=== PATIENT | female | born 1945 | race Caucasian/White ===

== ENCOUNTER → 2018-03-29 | Outpatient (CLI) | payer MEDICARE, OTHER ==
[~2018-03-29] MED LIST: ACCUNEB0.63 MG/3; DOXEPIN HCL25 MG PO; GLYBURIDE5 MG PO; LOSARTAN-HCTZ1 EAC1 PO; LUMIGAN2.5 M1 OU; METFORMIN HCL1000 MG PO; SERTRALINE HCL50 MG PO
--- NOTE | 2018-03-29 13:13 | Diagnostic Imaging Report ---
PROCEDURE: Frontal and lateral views of the chest. COMPARISON: 10/15/12 INDICATIONS: PRE OPERATIVE CHEST X-RAY FOR CARPAL TUNNEL FINDINGS: Limited by body habitus. Lines/tubes: None. Lungs: The lungs are well inflated and clear. There is no evidence of pneumonia or pulmonary edema. Pleura: There is no pleural effusion or pneumothorax. Heart and mediastinum: The heart and the mediastinum are normal. Bones: No acute bony abnormality. Degenerative changes of the visualized thoracolumbar spine. IMPRESSION: 1. No acute cardiopulmonary disease. Dictated by: Sid Horvath M.D. on 03/29/2018 at 13:19 Electronically approved by: Sid Horvath M.D. on 03/29/2018 at 13:19
== END ==
LOC: RAD 12:46
PROVIDERS: ATTEND Internal Medicine
DX: Z01.818 Encounter for other preprocedural examination (principal)
CPT/HCPCS: 71046

== ENCOUNTER → 2018-06-24 | Outpatient (CLI) | payer MEDICARE, OTHER ==
--- NOTE | 2018-06-24 11:42 | Diagnostic Imaging Report ---
EXAMINATION: CT scan of the chest without contrast. TECHNIQUE: Spiral CT images of the chest were performed from the lung apices to the level of the adrenal glands. No intravenous contrast was administered per referring physician request. Coronal and sagittal reformatted images were obtained. COMPARISON: None. CLINICAL HISTORY:Lung cancer screening, cough, smoker, COPD DISCUSSION: ABSENCE OF INTRAVENOUS CONTRAST DECREASES SENSITIVITY FOR DETECTION OF FOCAL LESIONS AND VASCULAR PATHOLOGY. LINES/TUBES: None. LUNGS AND AIRWAYS: 3 mm nodule lateral segment right middle lobe seen on series 3 image 35. Biapical parenchymal scar right greater than left.. Calcified granuloma superior segment left lower lobe seen on series 3 image 34. Juxtapleural reticular and groundglass opacities likely reflective of fibrotic changes. Trachea, mainstem bronchi, and central lobar and segmental bronchi are patent. PLEURA: No pneumothorax or pleural effusions. HEART AND MEDIASTINUM: Visualized portions of the thyroid gland appear normal. Atherosclerotic calcification of the aortic arch, great vessel origins, and coronary arteries. No ectasia or aneurysmal dilatation of the thoracic aorta. No pericardial effusion. LYMPH NODES: No axillary, hilar, or mediastinal lymphadenopathy. Right lower paratracheal lymph node is at the upper limits of normal in size, measuring 1 cm short axis, but with normal morphology. ABDOMEN: Visualized portions of the liver, spleen, pancreatic tail, and adrenal glands are notable for a 1.8 cm nodule in the right adrenal gland, average internal attenuation -10 Hounsfield units compatible with a lipid rich adenoma. BONES AND SOFT TISSUES: No osseous destructive lesions. Incompletely healed fracture deformities of the lateral aspects of the right fifth, sixth, and seventh ribs with adjacent pleural thickening. Healed fracture deformity of the left eighth rib. No focal soft tissue abnormalities. IMPRESSION: 3 mm noncalcified nodule in the lateral segment of the right middle lobe. In this high risk patient, a follow-up CT scan of the chest without contrast in 12 months may be considered to assess for stability per Fleischner Society 2017 guidelines. Scattered biapical and juxtapleural fibrotic changes. Atherosclerotic vascular disease. Benign left adrenal lipid rich adenoma. Incompletely healed fracture deformities of the right fifth through seventh ribs. Signed by: Dr. Silvano Padilla M.D. on 06/24/2018 11:38 AM
== END ==
LOC: CT 10:30
PROVIDERS: ATTEND Internal Medicine Critical Care Medicine
DX: Z12.2 Encounter for screening for malignant neoplasm of respiratory organs (principal)
CPT/HCPCS: 71250

== ENCOUNTER → 2018-08-17 | Outpatient (CLI) | payer MEDICARE, OTHER ==
--- NOTE | 2018-08-19 09:10 | Diagnostic Imaging Report ---
#[id number] - MGSCRBIL #BILATERAL DIGITAL SCREENING MAMMOGRAM WITH CAD: 08/17/2018 CLINICAL: Routine screening. No prior exams were available for comparison. Current study contains 4 films. There are scattered fibroglandular elements in both breasts. Current study was also evaluated with a Computer Aided Detection (CAD) system. There are benign calcifications in the right breast. No significant masses, calcifications, or other findings are seen in either breast. IMPRESSION: BENIGN There is no mammographic evidence of malignancy. A 1 year screening mammogram is recommended. The patient will be notified by letter of the results. Thierno wilks/gato:08/18/2018 13:57:28 Sugar Sampler: Gianna TABOR)(Gordon), [facility] letter sent: Normal Exam Mammogram BI-RADS: 2 Benign
== END ==
LOC: MAMMO 11:30
PROVIDERS: ATTEND Family Medicine
DX: Z12.31 Encounter for screening mammogram for malignant neoplasm of breast (principal)
CPT/HCPCS: 77067

== ENCOUNTER 2019-09-09 10:37 | Emergency (ER) | payer MEDICARE, OTHER ==
[~2019-09-09] VITALS: Ht 175.3 cm; Wt 108.9 kg
--- OUTSIDE RECORDS SUMMARY | 2019-09-09 10:39 | XMS REPORT ---
Author Author [facility] Address Unknown Phone Unavailable Care Team Providers Care Business Performance Manager Name Role Phone Victorino HOWELL Unavailable Unavailable STONE DOWLING Unavailable Unavailable ERI SANTANA Unavailable Unavailable Problems This patient has no known problems. Allergies, Adverse Reactions, Alerts This patient has no known allergies or adverse reactions. Medications This patient has no known medications. Results Test Description Test Time Test Comments Text Results Atomic Results Result Comments MAMMOGRAPHY DIGITAL SCR BILAT 2018-08-17 12:45:00 [place] [address] Patient Name: JOSHUA SHARIF MR #: [id number] : 1945 Age/Sex: 73/F Req #: [id number] Adm Physician: Ordered by: KIMMY HOWELL M.D. Report #: [id number] Location: MAMMO Room/Bed: Procedure: [id number] MG/MAMMOGRAPHY DIGITAL SCR BILAT Exam Date: 08/17/18 Exam Time: 1200 REPORT STATUS: Signed #[id number] - MGSCRBIL #BILATERAL DIGITAL SCREENING MAMMOGRAM WITH CAD: 08/17/2018 CLINICAL: Routine screening. No prior exams were available for comparison. Current study contains 4 films. There are scattered fibroglandular elements in both breasts. Current study was also evaluated with a Computer Aided Detection (CAD) system. There are benign calcifications in the right breast. No significant masses, calci fications, or other findings are seen in either breast. IMPRESSION: BENIGN There is no mammographic evidence of malignancy. A 1 year screening mammogram is recommended. The patient will be notified by letter of the results. Malini wilks/edward:08/18/2018 13:57:28 Slackline Operator: Gianna TABOR)(Gordon), [facility] letter sent: Normal Exam Mammogram BI-RADS: 2 Benign Dictated By: MALINI MEDINA DO 1357 Transcribed By: EDWARD on 08/18/18 1357 COPY TO: KIMMY HOWELL M.D. CT CHEST WO 2018-06-24 11:25:00 [place] [address] Patient Name: JOSHUA SHARIF MR #: [id number] : 1945 Age/Sex: 72/F Req #: [id number] Adm Physician: Ordered by: STONE DOWLING MD Report #: [id number] Location: CT Room/Bed: Procedure: [id number] CT/CT CHEST WO Exam Date: 06/24/18 Exam Time: 1100 REPORT STATUS: Signed EXAMINATION: CT scan of the chest without contrast. TECHNIQUE: Spiral CT images of the chest were performed from the lung apices to the level of the adrenal glands. No intravenous contrast was administered per referring physician request. Coronal and sagittal reformatted images were obtained. COMPARISON: None. CLINICAL HISTORY:Lung cancer screening, cough, smoker, COPD DISCUSSION: ABSENCE OF INTRAVENOUS CONTRAST DECREASES SENSITIVITY FOR DETECTION OF FOCAL LESIONS AND VASCULAR PATHOLOGY. LINES/TUBES: None. LUNGS AND AIRWAYS: 3 mm nodule lateral segment right middle lobe seen on series 3 image 35. Biapical parenchymal scar right greater than left.. Calcified granuloma superior segment left lower lobe seen on series 3 image 34. Juxtapleural reticular and groundglass opacities likely reflective of fibrotic changes. Trachea, mainstem bronchi, and central lobar and segmental bronchi are patent. PLEURA: No pneumothorax or pleural effusions. HEART AND MEDIASTINUM: Visualized portions of the thyroid g land appear normal. Atherosclerotic calcification of the aortic arch, great vessel origins, and coronary arteries. No ectasia or aneurysmal dilatation of the thoracic aorta. No pericardial effusion. LYMPH NODES: No axillary, hilar, or mediastinal lymphadenopathy. Right lower paratracheal lymph node is at the upper limits of normal in size, measuring 1 cm short axis, but with normal morphology. ABDOMEN: Visualized portions of the liver, spleen, pancreatic tail, and adrenal glands are notable for a 1.8 cm nodule in the right adrenal gland, average internal attenuation -10 Hounsfield units compatible with a lipid rich adenoma. BONES AND SOFT TISSUES: No osseous destructive lesions. Incompletely healed fracture deformities of the lateral aspects of the right fifth, sixth, and seventh ribs with adjacent pleural thickening. Healed fracture deformity of the left eighth rib. No focal soft tissue abnormalities. IMPRESSION: 3 mm noncalcified nodule in the la teral segment of the right middle lobe. In this high risk patient, a follow-up CT scan of the chest without contrast in 12 months may be considered to assess for stability per Fleischner Society 2017 guidelines. Scattered biapical and juxtapleural fibrotic changes. Atherosclerotic vascular disease. Benign left adrenal lipid rich adenoma. Incompletely healed fracture deformities of the right fifth through seventh ribs. Signed by: Dr. Chetan Hart M.D. on 06/24/2018 11:38 AM Dictated By: CHETAN HART MD 1138 Transcribed By: FABIÁN on 06/24/18 1138 COPY TO: STONE DOWLING MD CHEST 2 VIEWS 2018-03-29 13:19:00 [place] [address] Patient Name: JOSHUA SHARIF MR #: [id number] : 1945 Age/Sex: 72/F Req #: [id number] Adm Physician: Ordered by: ERI SANTANA MD Report #: [id number] Location: [facility] Room/Bed: Procedure: [id number] DX/CHEST 2 VIEWS Exam Date: 03/29/18 Exam Time: 1250 REPORT STATUS: Signed PROCEDURE: Frontal and lateral views of the chest. COMPARISON: 10/15/12 INDICATIONS: PRE OPERATIVE CHEST X-RAY FOR CARPAL TUNNEL FINDINGS: Limited by body habitus. Lines/tubes: None. Lungs: The lungs are well inflated and clear. There is no evidence of pneumonia or pulmonary edema. Pleura: There is no pleural effusion or pneumothorax. Heart and mediastinum: The heart and the mediastinum are normal. Bones: No acute bony abnormality. Degenerative changes of the visualized thoracolumbar spine. IMPRESSION: 1. No acute cardiopulmonary disease. Dictated by: Sid Juarez M.D. on 03/29/2018 at 13:19 Electronically approved by: Sid Juarez M.D. on 03/29/2018 at 13:19 Dictated By: SID JUAREZ MD Transcribed By: JENNIFER on 03/29/181318 COPY TO: ERI SANTANA MD
[2019-09-09] MEDS ORDERED: SODIUM CHLORIDE 0.9% 1000ML 1,000 ML IV SCH (11:45)
[2019-09-09 12:27] LABS: CLARITY,URINE SL CLOUDY (CLEAR); COLOR,URINE YELLOW (YELLOW)
[2019-09-09 12:28] LABS: BILIRUBIN,URINE NEGATIVE (NEGATIVE); KETONES,URINE NEGATIVE (NEGATIVE); LEUKOCYTE ESTERASE ,URINE NEGATIVE (NEGATIVE); NITRITE,URINE NEGATIVE (NEGATIVE); PROTEIN,URINE DIPSTICK NEGATIVE (NEGATIVE); URINE UROBILINOGEN 0.2 mg/dL (0.2 - 1)
[2019-09-09 12:33] LABS: BACTERIA,URINE MANY /HPF; EPITHELIAL CELLS,URINE MODERATE /LPF
[2019-09-09] MEDS ORDERED: CEFDINIR300 MG PO (12:42)
[2019-09-09] MEDS ORDERED: DIFLUCAN150 MG PO (12:44)
== END 2019-09-09 14:31 | disposition home or self-care (01) ==
LOC: ER 10:37
DX: E11.65 Type 2 diabetes mellitus with hyperglycemia (principal); N39.0 Urinary tract infection, site not specified; I10 Essential (primary) hypertension; J44.9 Chronic obstructive pulmonary disease, unspecified; E78.5 Hyperlipidemia, unspecified; F41.9 Anxiety disorder, unspecified; F17.210 Nicotine dependence, cigarettes, uncomplicated
CPT/HCPCS: 36415; 81001; 82948; 87086; 99283; J7030

== ENCOUNTER → 2020-12-13 | Outpatient (CLI) | payer MEDICARE, OTHER ==
[~2020-12-13] MED LIST changes: +CEFDINIR300 MG PO; +DIFLUCAN150 MG PO
== END ==
LOC: RAD 12:12
PROVIDERS: ATTEND Internal Medicine Critical Care Medicine
DX: J44.9 Chronic obstructive pulmonary disease, unspecified (principal)
CPT/HCPCS: 71046

== ENCOUNTER 2021-02-11 12:40 | Emergency (ER) | payer MEDICARE, OTHER ==
[~2021-02-11] VITALS: Ht 175.3 cm; Wt 108.9 kg
[2021-02-11] MEDS ORDERED: SODIUM CHLORIDE 0.9% 1000ML 1,000 ML IV SCH (13:15)
[2021-02-11 13:38] LABS: BASOPHILS # (AUTO) 0.1 (0.0-0.1); EOSINOPHILS # (AUTO) 0.1 (0.0-0.4); HEMATOCRIT 45.7 % (34.2-44.1); HEMOGLOBIN 15.4 g/dL (12.0-16.0); LYMPHOCYTES # (AUTO) 1.8 (1.0-3.2); LYMPHOCYTES % 16.8 % (18.0-39.1); MEAN CORPUSCULAR HEMOGLOBIN 30.7 pg (28-32); MEAN CORPUSCULAR HGB CONC 33.7 g/dL (31-35); MONOCYTES # (AUTO) 0.5 (0.2-0.8); MONOCYTES % 4.9 % (4.4-11.3); NEUTROPHILS # (AUTO) 8.1 (2.1-6.9); NEUTROPHILS % 75.7 % (38.7-80.0); PLATELET COUNT 298 x10e3/uL (140-360); RED BLOOD COUNT 5.02 x10e6/uL (3.6-5.1); RED CELL DISTRIBUTION WIDTH 12.8 % (11.7-14.4)
[2021-02-11 14:02] LABS: ALBUMIN/GLOBULIN RATIO 0.8 (0.8-2.0); ANION GAP 17.1 mmol/L (8-16); CALCIUM 9.2 mg/dL (8.4-10.2); CREATININE, SERUM 1.19 mg/dL (0.57-1.11); POTASSIUM 4.1 mmol/L (3.5-5.1)
[2021-02-11] MEDS ORDERED: INSULIN REGULAR, HUMAN 100 UNIT/1 ML IV ONE (14:30)
[2021-02-11 14:31] LABS: CLARITY,URINE SL CLOUDY (CLEAR); COLOR,URINE YELLOW (YELLOW); KETONES,URINE NEGATIVE (NEGATIVE); LEUKOCYTE ESTERASE ,URINE NEGATIVE (NEGATIVE); NITRITE,URINE NEGATIVE (NEGATIVE); PROTEIN,URINE DIPSTICK 1+ (NEGATIVE); URINE UROBILINOGEN 0.2 mg/dL (0.2 - 1)
[2021-02-11 14:44] LABS: BACTERIA,URINE FEW /HPF; EPITHELIAL CELLS,URINE MODERATE /LPF; RBC,URINE 0-5 /HPF (0-5)
== END 2021-02-11 17:47 | disposition home or self-care (01) ==
LOC: ER 13:01
DX: E11.65 Type 2 diabetes mellitus with hyperglycemia (principal); Z79.84 Long term (current) use of oral hypoglycemic drugs; I10 Essential (primary) hypertension; J44.9 Chronic obstructive pulmonary disease, unspecified; E78.5 Hyperlipidemia, unspecified; F41.8 Other specified anxiety disorders
CPT/HCPCS: 36415; 80053; 81001; 82948; 85025; 99283; J1817

== ENCOUNTER 2021-04-18 15:00 | Inpatient (IN) | payer MEDICARE, OTHER ==
[~2021-04-18] VITALS: Ht 175.3 cm; Wt 108.9 kg
[2021-04-18] MEDS ORDERED: IPRATROPIUM BROMIDE 0.02% 2.5 ML NEB NEB STA (15:12)
[2021-04-18] MEDS ORDERED: ALBUTEROL SULF 0.083% NEB SOLN 3 ML NEB NEB STA (15:12)
[2021-04-18 15:51] LABS: BASOPHILS # (AUTO) 0.1 (0.0-0.1); BASOPHILS % 0.7 % (0.0-1.0); EOSINOPHILS # (AUTO) 0.4 (0.0-0.4); EOSINOPHILS % 4.1 % (0.0-6.0); HEMATOCRIT 42.3 % (34.2-44.1); LYMPHOCYTES # (AUTO) 1.4 (1.0-3.2); LYMPHOCYTES % 13.2 % (18.0-39.1); MEAN CORPUSCULAR HGB CONC 33.1 g/dL (31-35); MEAN CORPUSCULAR VOLUME 90.6 fL (81-99); MONOCYTES # (AUTO) 0.8 (0.2-0.8); MONOCYTES % 7.3 % (4.4-11.3); NEUTROPHILS # (AUTO) 7.8 (2.1-6.9); NEUTROPHILS % 71.8 % (38.7-80.0); PLATELET COUNT 348 x10e3/uL (140-360); RED BLOOD COUNT 4.67 x10e6/uL (3.6-5.1); RED CELL DISTRIBUTION WIDTH 12.9 % (11.7-14.4)
[2021-04-18 16:00] LABS: INR 0.98; PROTHROMBIN TIME 13.2 seconds (11.9-14.5)
[2021-04-18 16:07] LABS: ALBUMIN/GLOBULIN RATIO 0.4 (0.8-2.0); ANION GAP 18.9 mmol/L (8-16); CALCIUM 9.1 mg/dL (8.4-10.2); CREATININE, SERUM 0.94 mg/dL (0.57-1.11); POTASSIUM 4.9 mmol/L (3.5-5.1)
[2021-04-18 16:18] LABS: CLARITY,URINE HAZY (CLEAR); COLOR,URINE AMBER (YELLOW); KETONES,URINE TRACE (NEGATIVE); LEUKOCYTE ESTERASE ,URINE SMALL (NEGATIVE); NITRITE,URINE POSITIVE (NEGATIVE); PROTEIN,URINE DIPSTICK 2+ (NEGATIVE); URINE UROBILINOGEN 0.2 mg/dL (0.2 - 1)
[2021-04-18 16:32] LABS: BACTERIA,URINE MANY /HPF; EPITHELIAL CELLS,URINE FEW /LPF; RBC,URINE 0-5 /HPF (0-5)
[2021-04-18] MEDS ORDERED: ALBUTEROL SULFATE HFA 8GM INHALATION AEROSOL INH ONE (19:00)
[2021-04-18 19:08] LABS: CREATINE KINASE MB 0.7 ng/mL (0-5.0)
[2021-04-18] MEDS ORDERED: REMDESIVIR 200MG 200 MG in SODIUM CHLORIDE 0.9% 100 ML 100 ML IV ONE (20:30)
[2021-04-18] MEDS: ENOXAPARIN 30 MG/0.3 ML SYR SC SCH (21:00)
[2021-04-18] MEDS: CEFTRIAXONE 2 GM in SODIUM CHLORIDE 0.9% 100 ML IV SCH (21:00)
[2021-04-18 22:10] VITALS: BP 174/90
[2021-04-19] VITALS (8 sets, daily range): BP systolic 119–177; BP diastolic 77–93
[2021-04-19 00:01] LABS: CREATINE KINASE MB 0.9 ng/mL (0-5.0)
[2021-04-19 05:28] LABS: BASOPHILS % 0.3 % (0.0-1.0); EOSINOPHILS % 0.1 % (0.0-6.0); HEMATOCRIT 39.3 % (34.2-44.1); HEMOGLOBIN 13.5 g/dL (12.0-16.0); LYMPHOCYTES # (AUTO) 1.1 (1.0-3.2); LYMPHOCYTES % 8.8 % (18.0-39.1); MEAN CORPUSCULAR HEMOGLOBIN 30.6 pg (28-32); MEAN CORPUSCULAR HGB CONC 34.4 g/dL (31-35); MEAN CORPUSCULAR VOLUME 89.1 fL (81-99); MONOCYTES # (AUTO) 0.6 (0.2-0.8); MONOCYTES % 4.8 % (4.4-11.3); NEUTROPHILS # (AUTO) 10.1 (2.1-6.9); NEUTROPHILS % 81.4 % (38.7-80.0); PLATELET COUNT 335 x10e3/uL (140-360); RED BLOOD COUNT 4.41 x10e6/uL (3.6-5.1); RED CELL DISTRIBUTION WIDTH 12.9 % (11.7-14.4)
[2021-04-19 05:58] LABS: ALBUMIN/GLOBULIN RATIO 0.4 (0.8-2.0); ANION GAP 21.4 mmol/L (8-16); CALCIUM 8.7 mg/dL (8.4-10.2); CREATININE, SERUM 0.98 mg/dL (0.57-1.11); POTASSIUM 4.4 mmol/L (3.5-5.1)
[2021-04-19] MEDS ORDERED: REMDESIVIR 200MG 200 MG in SODIUM CHLORIDE 0.9% 100 ML IV ONE (09:00)
[2021-04-19] MEDS ORDERED: DEXTROSE 50% SYRINGE 50 ML IV PRN (09:15)
[2021-04-19] MEDS ORDERED: SODIUM CHLORIDE 0.9% 250ML 250 ML ONE (09:44)
[2021-04-19] MEDS: ZINC SULFATE 50 MG CAP PO SCH (09:45)
[2021-04-19] MEDS: ASPIRIN 325 MG TAB PO SCH (09:45)
[2021-04-19] MEDS: LOSARTAN POTASSIUM 100 MG TAB PO SCH (09:45)
[2021-04-19] MEDS: ENOXAPARIN 30 MG/0.3 ML SYR SC SCH ×2 (09:45→20:32)
[2021-04-19] MEDS: HYDROCHLOROTHIAZIDE 25 MG TAB PO SCH (09:45)
[2021-04-19] MEDS: SERTRALINE HCL 50 MG TAB PO SCH (09:45)
[2021-04-19] MEDS: ASCORBIC ACID 500 MG TAB PO SCH ×2 (09:45→16:21)
[2021-04-19] MEDS ORDERED: INSULIN LISPRO 100 UNIT/1 ML 3ML VIAL SQ SCH (11:30)
[2021-04-19] MEDS: INSULIN LISPRO 100 UNIT/1 ML 3ML VIAL SQ SCH ×3 (13:26→20:32)
[2021-04-19] MEDS ORDERED: REMDESIVIR 100MG 100 MG in SODIUM CHLORIDE 0.9% 100 ML IV SCH (14:00)
[2021-04-19] MEDS: LORAZEPAM 1 MG TAB PO PRN (16:21)
[2021-04-19] MEDS: ALBUTEROL SULF 0.083% NEB SOLN 3 ML NEB NEB SCH ×2 (18:37→23:00)
[2021-04-19] MEDS: CEFTRIAXONE 2 GM in SODIUM CHLORIDE 0.9% 100 ML IV SCH (20:31)
[2021-04-19] MEDS: BIMATOPROST(OPTH) 2.5 ML BOTTLE OP SCH (20:31)
[2021-04-19] MEDS: DOXEPIN HCL 10 MG CAP PO SCH (20:32)
[2021-04-19] MEDS ORDERED: DOXEPIN HCL 25 MG CAP PO SCH (21:00)
[2021-04-20] VITALS (8 sets, daily range): BP systolic 115–166; BP diastolic 78–98
[2021-04-20 06:22] LABS: BASOPHILS # (AUTO) 0.1 (0.0-0.1); BASOPHILS % 0.8 % (0.0-1.0); EOSINOPHILS # (AUTO) 0.4 (0.0-0.4); EOSINOPHILS % 2.8 % (0.0-6.0); HEMOGLOBIN 13.6 g/dL (12.0-16.0); LYMPHOCYTES # (AUTO) 1.7 (1.0-3.2); LYMPHOCYTES % 11.9 % (18.0-39.1); MEAN CORPUSCULAR HEMOGLOBIN 29.8 pg (28-32); MEAN CORPUSCULAR HGB CONC 32.4 g/dL (31-35); MEAN CORPUSCULAR VOLUME 91.9 fL (81-99); MONOCYTES # (AUTO) 1.1 (0.2-0.8); MONOCYTES % 7.3 % (4.4-11.3); NEUTROPHILS # (AUTO) 10.7 (2.1-6.9); NEUTROPHILS % 73.8 % (38.7-80.0); PLATELET COUNT 407 x10e3/uL (140-360); RED BLOOD COUNT 4.57 x10e6/uL (3.6-5.1); RED CELL DISTRIBUTION WIDTH 13.2 % (11.7-14.4)
[2021-04-20] MEDS: ALBUTEROL SULF 0.083% NEB SOLN 3 ML NEB NEB SCH ×2 (07:00→15:00)
[2021-04-20 07:06] LABS: ALBUMIN/GLOBULIN RATIO 0.4 (0.8-2.0); ANION GAP 18.9 mmol/L (8-16); CALCIUM 9.4 mg/dL (8.4-10.2); CREATININE, SERUM 0.82 mg/dL (0.57-1.11); POTASSIUM 3.9 mmol/L (3.5-5.1)
[2021-04-20 07:37] LABS: CHOL/HDL RATIO 2.7 (3.0-3.6)
[2021-04-20] MEDS: INSULIN LISPRO 100 UNIT/1 ML 3ML VIAL SQ SCH ×4 (09:30→20:41)
[2021-04-20] MEDS: ZINC SULFATE 50 MG CAP PO SCH (09:30)
[2021-04-20] MEDS: LOSARTAN POTASSIUM 100 MG TAB PO SCH (09:30)
[2021-04-20] MEDS: ASPIRIN 325 MG TAB PO SCH (09:30)
[2021-04-20] MEDS: LORAZEPAM 1 MG TAB PO PRN ×2 (09:30→20:40)
[2021-04-20] MEDS: REMDESIVIR 100MG 100 MG in SODIUM CHLORIDE 0.9% 100 ML IV SCH (09:30)
[2021-04-20] MEDS: SERTRALINE HCL 50 MG TAB PO SCH (09:30)
[2021-04-20] MEDS: ASCORBIC ACID 500 MG TAB PO SCH ×2 (09:30→16:30)
[2021-04-20] MEDS: NICOTINE 7 MG PATCH TOP SCH (09:30)
[2021-04-20] MEDS: HYDROCHLOROTHIAZIDE 25 MG TAB PO SCH (09:30)
[2021-04-20] MEDS: ENOXAPARIN 30 MG/0.3 ML SYR SC SCH ×2 (09:30→20:40)
[2021-04-20] MEDS ORDERED: HYDRALAZINE HCL 20 MG/ML VIAL IV PRN (19:30)
[2021-04-20] MEDS: CEFTRIAXONE 2 GM in SODIUM CHLORIDE 0.9% 100 ML IV SCH (20:39)
[2021-04-20] MEDS: DOXEPIN HCL 10 MG CAP PO SCH (20:40)
[2021-04-20] MEDS: BIMATOPROST(OPTH) 2.5 ML BOTTLE OP SCH (20:40)
[2021-04-21] VITALS (8 sets, daily range): BP systolic 112–144; BP diastolic 74–85
[2021-04-21 06:03] LABS: BASOPHILS # (AUTO) 0.1 (0.0-0.1); BASOPHILS % 0.7 % (0.0-1.0); EOSINOPHILS # (AUTO) 0.4 (0.0-0.4); EOSINOPHILS % 2.3 % (0.0-6.0); HEMOGLOBIN 14.5 g/dL (12.0-16.0); LYMPHOCYTES # (AUTO) 1.5 (1.0-3.2); MEAN CORPUSCULAR VOLUME 91.1 fL (81-99); MONOCYTES # (AUTO) 1.2 (0.2-0.8); MONOCYTES % 7.6 % (4.4-11.3); NEUTROPHILS # (AUTO) 11.6 (2.1-6.9); NEUTROPHILS % 76.6 % (38.7-80.0); PLATELET COUNT 437 x10e3/uL (140-360); RED BLOOD COUNT 4.83 x10e6/uL (3.6-5.1); RED CELL DISTRIBUTION WIDTH 13.1 % (11.7-14.4)
[2021-04-21 07:01] LABS: ALBUMIN 2.1 g/dL (3.5-5.0); ALBUMIN/GLOBULIN RATIO 0.5 (0.8-2.0); ANION GAP 18.8 mmol/L (8-16); CALCIUM 9.2 mg/dL (8.4-10.2); CREATININE, SERUM 0.9 mg/dL (0.57-1.11); POTASSIUM 3.8 mmol/L (3.5-5.1)
[2021-04-21] MEDS: NICOTINE 7 MG PATCH TOP SCH (08:18)
[2021-04-21] MEDS: LOSARTAN POTASSIUM 100 MG TAB PO SCH (08:18)
[2021-04-21] MEDS: ASPIRIN 325 MG TAB PO SCH (08:18)
[2021-04-21] MEDS: ASCORBIC ACID 500 MG TAB PO SCH ×2 (08:18→17:59)
[2021-04-21] MEDS: SERTRALINE HCL 50 MG TAB PO SCH (08:18)
[2021-04-21] MEDS: REMDESIVIR 100MG 100 MG in SODIUM CHLORIDE 0.9% 100 ML IV SCH (08:18)
[2021-04-21] MEDS: HYDROCHLOROTHIAZIDE 25 MG TAB PO SCH (08:18)
[2021-04-21] MEDS: ZINC SULFATE 50 MG CAP PO SCH (08:18)
[2021-04-21] MEDS: ENOXAPARIN 30 MG/0.3 ML SYR SC SCH ×2 (08:18→20:52)
[2021-04-21] MEDS: LORAZEPAM 1 MG TAB PO PRN (08:19)
[2021-04-21] MEDS: INSULIN LISPRO 100 UNIT/1 ML 3ML VIAL SQ SCH ×4 (08:20→20:52)
[2021-04-21] MEDS: DOXEPIN HCL 10 MG CAP PO SCH (20:52)
[2021-04-21] MEDS: CEFTRIAXONE 2 GM in SODIUM CHLORIDE 0.9% 100 ML IV SCH (20:52)
[2021-04-21] MEDS: BIMATOPROST(OPTH) 2.5 ML BOTTLE OP SCH (20:52)
[2021-04-22] VITALS (7 sets, daily range): BP systolic 94–123; BP diastolic 56–80
[2021-04-22] MEDS: LORAZEPAM 1 MG TAB PO PRN (02:43)
[2021-04-22 07:07] LABS: MAGNESIUM 1.5 MG/DL (1.3-2.1); PHOSPHORUS 4.4 MG/DL (2.3-4.7)
[2021-04-22] MEDS: ZINC SULFATE 50 MG CAP PO SCH (08:21)
[2021-04-22] MEDS: ASCORBIC ACID 500 MG TAB PO SCH ×2 (08:21→17:00)
[2021-04-22] MEDS: HYDROCHLOROTHIAZIDE 25 MG TAB PO SCH (08:21)
[2021-04-22] MEDS: ASPIRIN 325 MG TAB PO SCH (08:21)
[2021-04-22] MEDS: SERTRALINE HCL 50 MG TAB PO SCH (08:22)
[2021-04-22] MEDS: NICOTINE 7 MG PATCH TOP SCH (08:22)
[2021-04-22] MEDS: ENOXAPARIN 30 MG/0.3 ML SYR SC SCH ×2 (08:22→23:04)
[2021-04-22] MEDS ORDERED: SODIUM CHLORIDE 0.9% 100 ML ONE (08:37)
[2021-04-22] MEDS: REMDESIVIR 100MG 100 MG in SODIUM CHLORIDE 0.9% 100 ML IV SCH (09:28)
[2021-04-22 10:08] LABS: BASOPHILS # (AUTO) 0.1 (0.0-0.1); BASOPHILS % 0.7 % (0.0-1.0); EOSINOPHILS # (AUTO) 0.2 (0.0-0.4); EOSINOPHILS % 1.1 % (0.0-6.0); HEMATOCRIT 44.5 % (34.2-44.1); HEMOGLOBIN 14.3 g/dL (12.0-16.0); LYMPHOCYTES # (AUTO) 1.4 (1.0-3.2); LYMPHOCYTES % 8.9 % (18.0-39.1); MEAN CORPUSCULAR HEMOGLOBIN 29.9 pg (28-32); MEAN CORPUSCULAR HGB CONC 32.1 g/dL (31-35); MEAN CORPUSCULAR VOLUME 93.1 fL (81-99); MONOCYTES # (AUTO) 1.1 (0.2-0.8); MONOCYTES % 7.1 % (4.4-11.3); NEUTROPHILS # (AUTO) 12.4 (2.1-6.9); NEUTROPHILS % 80.3 % (38.7-80.0); PLATELET COUNT 446 x10e3/uL (140-360); RED BLOOD COUNT 4.78 x10e6/uL (3.6-5.1); RED CELL DISTRIBUTION WIDTH 13.2 % (11.7-14.4)
[2021-04-22 10:25] LABS: ALBUMIN 2.1 g/dL (3.5-5.0); ALBUMIN/GLOBULIN RATIO 0.5 (0.8-2.0); ANION GAP 19.7 mmol/L (8-16); CALCIUM 9.1 mg/dL (8.4-10.2); CREATININE, SERUM 0.87 mg/dL (0.57-1.11); POTASSIUM 3.7 mmol/L (3.5-5.1)
[2021-04-22] MEDS: INSULIN LISPRO 100 UNIT/1 ML 3ML VIAL SQ SCH ×4 (10:34→21:00)
[2021-04-22] MEDS: BIMATOPROST(OPTH) 2.5 ML BOTTLE OP SCH (23:04)
[2021-04-22] MEDS: CEFTRIAXONE 2 GM in SODIUM CHLORIDE 0.9% 100 ML IV SCH (23:04)
[2021-04-22] MEDS: DOXEPIN HCL 10 MG CAP PO SCH (23:04)
[2021-04-23 00:59] VITALS: BP 100/73
[2021-04-23 04:00] VITALS: BP 119/62
[2021-04-23] MEDS: INSULIN LISPRO 100 UNIT/1 ML 3ML VIAL SQ SCH ×4 (07:30→20:53)
[2021-04-23] MEDS: NICOTINE 7 MG PATCH TOP SCH (08:50)
[2021-04-23] MEDS: LOSARTAN POTASSIUM 25 MG TAB PO SCH (08:50)
[2021-04-23] MEDS: SERTRALINE HCL 50 MG TAB PO SCH (08:50)
[2021-04-23] MEDS: HYDROCHLOROTHIAZIDE 25 MG TAB PO SCH (08:50)
[2021-04-23] MEDS: REMDESIVIR 100MG 100 MG in SODIUM CHLORIDE 0.9% 100 ML IV SCH (08:50)
[2021-04-23] MEDS: ASCORBIC ACID 500 MG TAB PO SCH ×2 (08:50→16:20)
[2021-04-23] MEDS: ASPIRIN 325 MG TAB PO SCH (08:50)
[2021-04-23] MEDS: ZINC SULFATE 50 MG CAP PO SCH (08:50)
[2021-04-23] MEDS: ENOXAPARIN 30 MG/0.3 ML SYR SC SCH ×2 (08:50→20:52)
[2021-04-23 09:09] VITALS: BP 107/67
[2021-04-23 10:21] LABS: BASOPHILS # (AUTO) 0.1 (0.0-0.1); BASOPHILS % 0.9 % (0.0-1.0); EOSINOPHILS # (AUTO) 0.2 (0.0-0.4); EOSINOPHILS % 1.5 % (0.0-6.0); HEMOGLOBIN 13.4 g/dL (12.0-16.0); LYMPHOCYTES # (AUTO) 1.4 (1.0-3.2); LYMPHOCYTES % 11.1 % (18.0-39.1); MEAN CORPUSCULAR HEMOGLOBIN 29.6 pg (28-32); MEAN CORPUSCULAR HGB CONC 31.9 g/dL (31-35); MEAN CORPUSCULAR VOLUME 92.9 fL (81-99); MONOCYTES # (AUTO) 0.8 (0.2-0.8); MONOCYTES % 6.5 % (4.4-11.3); NEUTROPHILS # (AUTO) 9.7 (2.1-6.9); PLATELET COUNT 375 x10e3/uL (140-360); RED BLOOD COUNT 4.52 x10e6/uL (3.6-5.1); RED CELL DISTRIBUTION WIDTH 13.2 % (11.7-14.4)
[2021-04-23 11:14] LABS: ALBUMIN 2.1 g/dL (3.5-5.0); ALBUMIN/GLOBULIN RATIO 0.5 (0.8-2.0); ANION GAP 16.6 mmol/L (8-16); CALCIUM 8.8 mg/dL (8.4-10.2); CREATININE, SERUM 0.96 mg/dL (0.57-1.11); POTASSIUM 3.6 mmol/L (3.5-5.1)
[2021-04-23] MEDS: LORAZEPAM 1 MG TAB PO PRN (16:55)
[2021-04-23] MEDS: DOXEPIN HCL 10 MG CAP PO SCH (20:52)
[2021-04-23] MEDS: BIMATOPROST(OPTH) 2.5 ML BOTTLE OP SCH (20:52)
[2021-04-23] MEDS: CEFTRIAXONE 2 GM in SODIUM CHLORIDE 0.9% 100 ML IV SCH (20:52)
[2021-04-23 20:55] VITALS: BP 97/61
[2021-04-24] VITALS (7 sets, daily range): BP systolic 98–123; BP diastolic 64–85
[2021-04-24] MEDS: HYDROCODONE/APAP 10MG-325MG TAB PO PRN ×2 (02:34→08:34)
[2021-04-24 06:23] LABS: BASOPHILS # (AUTO) 0.2 (0.0-0.1); BASOPHILS % 1.1 % (0.0-1.0); EOSINOPHILS # (AUTO) 0.2 (0.0-0.4); EOSINOPHILS % 1.8 % (0.0-6.0); HEMATOCRIT 36.9 % (34.2-44.1); HEMOGLOBIN 13.2 g/dL (12.0-16.0); LYMPHOCYTES # (AUTO) 1.6 (1.0-3.2); LYMPHOCYTES % 12.1 % (18.0-39.1); MEAN CORPUSCULAR HEMOGLOBIN 33.5 pg (28-32); MEAN CORPUSCULAR HGB CONC 35.8 g/dL (31-35); MEAN CORPUSCULAR VOLUME 93.7 fL (81-99); MONOCYTES % 7.5 % (4.4-11.3); NEUTROPHILS # (AUTO) 10.1 (2.1-6.9); NEUTROPHILS % 76.4 % (38.7-80.0); PLATELET COUNT 299 x10e3/uL (140-360); RED BLOOD COUNT 3.94 x10e6/uL (3.6-5.1); RED CELL DISTRIBUTION WIDTH 14.6 % (11.7-14.4)
[2021-04-24 06:42] LABS: ANION GAP 15.6 mmol/L (8-16); CREATININE, SERUM 1.01 mg/dL (0.57-1.11); POTASSIUM 3.6 mmol/L (3.5-5.1)
[2021-04-24 07:21] LABS: ALBUMIN 2.1 g/dL (3.5-5.0); ALBUMIN/GLOBULIN RATIO 0.5 (0.8-2.0); ANION GAP 17.6 mmol/L (8-16); CREATININE, SERUM 1.04 mg/dL (0.57-1.11); POTASSIUM 3.6 mmol/L (3.5-5.1)
[2021-04-24] MEDS ORDERED: DEXAMETHASONE SOD PHOS 10 MG/1 ML VIAL IV SCH (09:00)
[2021-04-24] MEDS: SERTRALINE HCL 50 MG TAB PO SCH (09:10)
[2021-04-24] MEDS: ASCORBIC ACID 500 MG TAB PO SCH ×2 (09:10→16:54)
[2021-04-24] MEDS: ENOXAPARIN 30 MG/0.3 ML SYR SC SCH (09:10)
[2021-04-24] MEDS: ZINC SULFATE 50 MG CAP PO SCH (09:10)
[2021-04-24] MEDS: HYDROCHLOROTHIAZIDE 25 MG TAB PO SCH (09:10)
[2021-04-24] MEDS: ASPIRIN 325 MG TAB PO SCH (09:10)
[2021-04-24] MEDS: NICOTINE 7 MG PATCH TOP SCH (09:10)
[2021-04-24] MEDS: REMDESIVIR 100MG 100 MG in SODIUM CHLORIDE 0.9% 100 ML IV SCH (09:30)
[2021-04-24] MEDS: INSULIN LISPRO 100 UNIT/1 ML 3ML VIAL SQ SCH ×3 (09:51→16:59)
[2021-04-24] MEDS: LOSARTAN POTASSIUM 25 MG TAB PO SCH (12:00)
[2021-04-24] MEDS ORDERED: COZAAR25 MG PO (13:31)
[2021-04-24] MEDS ORDERED: ASCORBIC ACID500 MG PO (13:31)
[2021-04-24] MEDS ORDERED: Zinc Sulfate PO (13:31)
[2021-04-24] MEDS ORDERED: ESIDRIX25 MG PO (13:31)
[2021-04-24] MEDS ORDERED: ASPIRIN325 MG PO (13:31)
[2021-04-24] MEDS ORDERED: DOXEPIN HCL10 MG PO (13:31)
[2021-04-24] MEDS ORDERED: NICODERM CQ1 EACH TOP (13:31)
[2021-04-24] MEDS ORDERED: DECADRON4 M1 PO (13:33)
[2021-04-24] MEDS: LORAZEPAM 1 MG TAB PO PRN (16:50)
== END 2021-04-24 20:51 | DRG 177 ==
LOC: ER 15:10 → ERHOLD 18:51 → IMCU 22:08
PROVIDERS: ADMIT Internal Medicine; ATTEND Internal Medicine
PROC: 3E0333Z Introduction of Anti-inflammatory into Peripheral Vein, Percutaneous Approach (ICD-10-PCS; principal; 2021-04-24)
PROC: XW033E5 Introduction of Remdesivir Anti-infective into Peripheral Vein, Percutaneous Approach, New Technology Group 5 (ICD-10-PCS; 2021-04-24)
DX: U07.1 COVID-19 (principal); J12.82 Pneumonia due to coronavirus disease 2019; J96.01 Acute respiratory failure with hypoxia; N39.0 Urinary tract infection, site not specified; E87.2 Acidosis; Z83.3 Family history of diabetes mellitus; F17.210 Nicotine dependence, cigarettes, uncomplicated; J44.9 Chronic obstructive pulmonary disease, unspecified; I10 Essential (primary) hypertension; F41.1 Generalized anxiety disorder; H40.9 Unspecified glaucoma; E11.9 Type 2 diabetes mellitus without complications; E66.9 Obesity, unspecified; Z68.35 Body mass index [BMI] 35.0-35.9, adult; R53.81 Other malaise; B96.20 Unspecified Escherichia coli [E. coli] as the cause of diseases classified elsewhere; Z79.82 Long term (current) use of aspirin; Z79.84 Long term (current) use of oral hypoglycemic drugs
CPT/HCPCS: 36415; 51700; 71045; 80048; 80053; 80061; 81001; 82550; 82553; 82948; 83036; 83605; 83735; 84100; 84443; 84484; 85025; 85379; 85610; 86140; 87040; 87086; 87186; 93005; 93306; 94664; 97139; 99284; J0456; J0696; J1100; J1650; J7050; U0002

== ENCOUNTER 2021-08-23 14:54 | Inpatient (IN) | payer MEDICARE, OTHER ==
[~2021-08-23] VITALS: Ht 175.3 cm; Wt 147.4 kg
[~2021-08-23 14:54] MED LIST changes: +ASCORBIC ACID500 MG PO; +ASPIRIN325 MG PO; +COZAAR25 MG PO; +DECADRON4 M1 PO; +DOXEPIN HCL10 MG PO; +ESIDRIX25 MG PO; +NICODERM CQ1 EACH TOP; +Zinc Sulfate PO
[2021-08-23 15:36] LABS: BASOPHILS # (AUTO) 0.1 (0.0-0.1); BASOPHILS % 0.5 % (0.0-1.0); EOSINOPHILS % 0.1 % (0.0-6.0); HEMATOCRIT 46.6 % (34.2-44.1); HEMOGLOBIN 15.2 g/dL (12.0-16.0); LYMPHOCYTES # (AUTO) 1.3 (1.0-3.2); LYMPHOCYTES % 7.5 % (18.0-39.1); MEAN CORPUSCULAR HEMOGLOBIN 30.4 pg (28-32); MEAN CORPUSCULAR HGB CONC 32.6 g/dL (31-35); MEAN CORPUSCULAR VOLUME 93.2 fL (81-99); MONOCYTES # (AUTO) 0.9 (0.2-0.8); MONOCYTES % 5.1 % (4.4-11.3); NEUTROPHILS # (AUTO) 14.6 (2.1-6.9); NEUTROPHILS % 86.3 % (38.7-80.0); PLATELET COUNT 328 x10e3/uL (140-360)
[2021-08-23 15:40] LABS: CLARITY,URINE HAZY (CLEAR); COLOR,URINE YELLOW (YELLOW); KETONES,URINE NEGATIVE (NEGATIVE); LEUKOCYTE ESTERASE ,URINE NEGATIVE (NEGATIVE); NITRITE,URINE NEGATIVE (NEGATIVE); PROTEIN,URINE DIPSTICK 2+ (NEGATIVE); URINE UROBILINOGEN 0.2 mg/dL (0.2 - 1)
[2021-08-23 15:41] LABS: AMPHETAMINES SCREEN,URINE NEGATIVE (NEGATIVE); BENZODIAZEPINES SCREEN,URINE NEGATIVE (NEGATIVE); PHENCYCLIDINE SCREEN,URINE NEGATIVE (NEGATIVE)
[2021-08-23 15:53] LABS: ALBUMIN 3.3 g/dL (3.5-5.0); ALBUMIN/GLOBULIN RATIO 0.8 (0.8-2.0); ANION GAP 12.9 mmol/L (8-16); CREATININE, SERUM 1.11 mg/dL (0.57-1.11); POTASSIUM 4.9 mmol/L (3.5-5.1)
[2021-08-23 15:54] LABS: CREATINE KINASE 221 IU/L (29-168)
[2021-08-23] MEDS ORDERED: LORAZEPAM INJ 2 MG/ML VIAL IV ONE (16:00)
[2021-08-23 16:13] LABS: BACTERIA,URINE FEW /HPF; EPITHELIAL CELLS,URINE RARE /LPF; RBC,URINE 0-5 /HPF (0-5)
[2021-08-23] MEDS ORDERED: Vancomycin IV 1 GM in SODIUM CHLORIDE 0.9% 250ML 250 ML IV ONE (16:30)
[2021-08-23] MEDS ORDERED: PIPERACILLIN/TAZOBACTAM 3.375 GM in SODIUM CHLORIDE 0.9% 50ML 50 ML IV ONE (16:30)
[2021-08-23 18:22] VITALS: BP 106/78
[2021-08-23 19:19] VITALS: BP 106/78
[2021-08-23 20:06] VITALS: BP 106/78
[2021-08-23 21:03] VITALS: BP 129/78
[2021-08-23] MEDS: PIPERACILLIN/TAZOBACTAM 3.375 GM in SODIUM CHLORIDE 0.9% 50ML 50 ML IV SCH (22:00)
[2021-08-23] MEDS ORDERED: Vancomycin IV 1 GM in SODIUM CHLORIDE 0.9% 250ML 250 ML IV SCH (22:00)
[2021-08-23] MEDS ORDERED: SODIUM CHLORIDE 0.9% 250ML 250 ML ONE (23:01)
[2021-08-24] VITALS (10 sets, daily range): BP systolic 92–151; BP diastolic 61–103
[2021-08-24] MEDS: LORAZEPAM INJ 2 MG/ML VIAL IV PRN ×4 (02:15→17:45)
[2021-08-24] MEDS: PIPERACILLIN/TAZOBACTAM 3.375 GM in SODIUM CHLORIDE 0.9% 50ML 50 ML IV SCH ×4 (04:00→21:05)
[2021-08-24] MEDS ORDERED: Vancomycin IV 1 GM in SODIUM CHLORIDE 0.9% 250ML 250 ML IV SCH (05:00)
[2021-08-24] MEDS ORDERED: Vancomycin IV 1.75 GM in SODIUM CHLORIDE 0.9% 250ML 250 ML IV SCH (09:00)
[2021-08-24] MEDS ORDERED: DEXTROSE 50% SYRINGE 50 ML IV PRN (09:45)
[2021-08-24] MEDS: ALBUTEROL/IPRATROPIUM 3 ML NEB NEB SCH ×3 (11:20→20:00)
[2021-08-24] MEDS ORDERED: RISPERIDONE 0.5 MG TAB PO SCH (11:30)
[2021-08-24] MEDS ORDERED: SODIUM CHLORIDE 0.9% 1000ML 1,000 ML IV ONE (11:30)
[2021-08-24] MEDS: INSULIN LISPRO 100 UNIT/1 ML 3ML VIAL SQ SCH ×3 (11:30→20:53)
[2021-08-24] MEDS ORDERED: SODIUM CHLORIDE 0.9% 1000ML 1,000 ML ONE (15:03)
[2021-08-24] MEDS: RISPERIDONE 0.5 MG TAB PO SCH ×2 (15:59→20:02)
[2021-08-25] VITALS (7 sets, daily range): BP systolic 101–129; BP diastolic 61–79
[2021-08-25] MEDS: ALBUTEROL/IPRATROPIUM 3 ML NEB NEB SCH ×7 (00:43→18:50)
[2021-08-25] MEDS: LORAZEPAM INJ 2 MG/ML VIAL IV PRN ×3 (02:34→21:04)
[2021-08-25] MEDS: PIPERACILLIN/TAZOBACTAM 3.375 GM in SODIUM CHLORIDE 0.9% 50ML 50 ML IV SCH ×4 (03:02→21:04)
[2021-08-25 08:07] LABS: BASOPHILS # (AUTO) 0.2 (0.0-0.1); BASOPHILS % 1.4 % (0.0-1.0); EOSINOPHILS # (AUTO) 0.3 (0.0-0.4); EOSINOPHILS % 2.9 % (0.0-6.0); HEMATOCRIT 44.2 % (34.2-44.1); HEMOGLOBIN 14.1 g/dL (12.0-16.0); LYMPHOCYTES % 18.2 % (18.0-39.1); MEAN CORPUSCULAR HEMOGLOBIN 30.3 pg (28-32); MEAN CORPUSCULAR HGB CONC 31.9 g/dL (31-35); MEAN CORPUSCULAR VOLUME 94.8 fL (81-99); MONOCYTES # (AUTO) 0.6 (0.2-0.8); MONOCYTES % 5.7 % (4.4-11.3); NEUTROPHILS # (AUTO) 7.9 (2.1-6.9); NEUTROPHILS % 71.4 % (38.7-80.0); PLATELET COUNT 294 x10e3/uL (140-360); RED BLOOD COUNT 4.66 x10e6/uL (3.6-5.1)
[2021-08-25] MEDS: RISPERIDONE 0.5 MG TAB PO SCH ×2 (08:25→20:01)
[2021-08-25] MEDS: ASPIRIN 325 MG TAB PO SCH (08:25)
[2021-08-25] MEDS: INSULIN LISPRO 100 UNIT/1 ML 3ML VIAL SQ SCH ×4 (08:25→20:02)
[2021-08-25] MEDS: LOSARTAN POTASSIUM 25 MG TAB PO SCH (08:25)
[2021-08-25 08:26] LABS: ANION GAP 12.1 mmol/L (8-16); CALCIUM 9.1 mg/dL (8.4-10.2); CREATININE, SERUM 1.17 mg/dL (0.57-1.11); POTASSIUM 4.1 mmol/L (3.5-5.1)
[2021-08-25] MEDS: Vancomycin IV 1.75 GM in SODIUM CHLORIDE 0.9% 500ML 500 ML IV SCH (12:10)
[2021-08-26] VITALS (7 sets, daily range): BP systolic 90–140; BP diastolic 61–84
[2021-08-26] MEDS: PIPERACILLIN/TAZOBACTAM 3.375 GM in SODIUM CHLORIDE 0.9% 50ML 50 ML IV SCH ×4 (04:00→21:05)
[2021-08-26] MEDS: ALBUTEROL/IPRATROPIUM 3 ML NEB NEB SCH ×6 (04:33→23:05)
[2021-08-26] MEDS: INSULIN LISPRO 100 UNIT/1 ML 3ML VIAL SQ SCH ×5 (07:30→22:00)
[2021-08-26] MEDS: LOSARTAN POTASSIUM 25 MG TAB PO SCH (08:47)
[2021-08-26] MEDS: RISPERIDONE 0.5 MG TAB PO SCH ×2 (08:47→20:19)
[2021-08-26] MEDS: ASPIRIN 325 MG TAB PO SCH (08:47)
[2021-08-26] MEDS: Vancomycin IV 1.75 GM in SODIUM CHLORIDE 0.9% 500ML 500 ML IV SCH (09:11)
[2021-08-27] VITALS (8 sets, daily range): BP systolic 111–147; BP diastolic 55–80
[2021-08-27] MEDS: ALBUTEROL/IPRATROPIUM 3 ML NEB NEB SCH ×5 (00:12→18:31)
[2021-08-27] MEDS: PIPERACILLIN/TAZOBACTAM 3.375 GM in SODIUM CHLORIDE 0.9% 50ML 50 ML IV SCH ×4 (03:25→22:15)
[2021-08-27 05:06] LABS: BASOPHILS # (AUTO) 0.1 (0.0-0.1); BASOPHILS % 0.9 % (0.0-1.0); EOSINOPHILS # (AUTO) 0.3 (0.0-0.4); EOSINOPHILS % 2.9 % (0.0-6.0); HEMATOCRIT 46.3 % (34.2-44.1); HEMOGLOBIN 14.6 g/dL (12.0-16.0); LYMPHOCYTES # (AUTO) 2.2 (1.0-3.2); MEAN CORPUSCULAR HGB CONC 31.5 g/dL (31-35); MEAN CORPUSCULAR VOLUME 95.3 fL (81-99); MONOCYTES # (AUTO) 0.6 (0.2-0.8); MONOCYTES % 5.1 % (4.4-11.3); NEUTROPHILS # (AUTO) 8.3 (2.1-6.9); NEUTROPHILS % 71.5 % (38.7-80.0); PLATELET COUNT 323 x10e3/uL (140-360); RED BLOOD COUNT 4.86 x10e6/uL (3.6-5.1); RED CELL DISTRIBUTION WIDTH 12.7 % (11.7-14.4)
[2021-08-27] MEDS: LORAZEPAM INJ 2 MG/ML VIAL IV PRN ×2 (05:34→14:08)
[2021-08-27 05:45] LABS: ANION GAP 14.8 mmol/L (8-16); CALCIUM 9.4 mg/dL (8.4-10.2); CREATININE, SERUM 0.91 mg/dL (0.57-1.11); POTASSIUM 3.8 mmol/L (3.5-5.1)
[2021-08-27] MEDS: INSULIN LISPRO 100 UNIT/1 ML 3ML VIAL SQ SCH ×4 (07:30→20:46)
[2021-08-27] MEDS: RISPERIDONE 0.5 MG TAB PO SCH ×2 (08:51→20:46)
[2021-08-27] MEDS: LOSARTAN POTASSIUM 25 MG TAB PO SCH (08:51)
[2021-08-27] MEDS: ASPIRIN 325 MG TAB PO SCH (08:51)
[2021-08-27] MEDS: Vancomycin IV 1.75 GM in SODIUM CHLORIDE 0.9% 500ML 500 ML IV SCH (10:09)
[2021-08-27] MEDS ORDERED: DOXEPIN HCL 25 MG CAP PO SCH (21:00)
[2021-08-28 00:06] VITALS: BP 120/63
[2021-08-28] MEDS: LORAZEPAM INJ 2 MG/ML VIAL IV PRN ×2 (02:30→12:15)
[2021-08-28] MEDS: PIPERACILLIN/TAZOBACTAM 3.375 GM in SODIUM CHLORIDE 0.9% 50ML 50 ML IV SCH ×2 (03:25→10:00)
[2021-08-28 04:22] VITALS: BP 130/74
[2021-08-28 05:04] LABS: BASOPHILS # (AUTO) 0.2 (0.0-0.1); BASOPHILS % 1.1 % (0.0-1.0); EOSINOPHILS # (AUTO) 0.4 (0.0-0.4); EOSINOPHILS % 2.9 % (0.0-6.0); HEMATOCRIT 46.4 % (34.2-44.1); HEMOGLOBIN 15.1 g/dL (12.0-16.0); LYMPHOCYTES # (AUTO) 2.5 (1.0-3.2); LYMPHOCYTES % 17.5 % (18.0-39.1); MEAN CORPUSCULAR HEMOGLOBIN 30.3 pg (28-32); MEAN CORPUSCULAR HGB CONC 32.5 g/dL (31-35); MEAN CORPUSCULAR VOLUME 93.2 fL (81-99); MONOCYTES # (AUTO) 0.7 (0.2-0.8); MONOCYTES % 4.9 % (4.4-11.3); NEUTROPHILS # (AUTO) 10.2 (2.1-6.9); PLATELET COUNT 314 x10e3/uL (140-360); RED BLOOD COUNT 4.98 x10e6/uL (3.6-5.1); RED CELL DISTRIBUTION WIDTH 12.7 % (11.7-14.4)
[2021-08-28 05:59] LABS: CALCIUM 9.4 mg/dL (8.4-10.2); CREATININE, SERUM 0.82 mg/dL (0.57-1.11); MAGNESIUM 1.8 MG/DL (1.3-2.1); PHOSPHORUS 3.1 MG/DL (2.3-4.7)
[2021-08-28] MEDS: INSULIN LISPRO 100 UNIT/1 ML 3ML VIAL SQ SCH ×2 (07:30→11:30)
[2021-08-28 08:00] VITALS: BP 130/74
[2021-08-28] MEDS: ALBUTEROL/IPRATROPIUM 3 ML NEB NEB SCH ×2 (08:03→11:41)
[2021-08-28] MEDS: LOSARTAN POTASSIUM 25 MG TAB PO SCH (09:00)
[2021-08-28] MEDS: RISPERIDONE 0.5 MG TAB PO SCH (09:00)
[2021-08-28] MEDS: Vancomycin IV 1.75 GM in SODIUM CHLORIDE 0.9% 500ML 500 ML IV SCH (09:00)
[2021-08-28] MEDS: ASPIRIN 325 MG TAB PO SCH (09:00)
[2021-08-28] MEDS ORDERED: VANCOMYCIN1 GM/250 M IV (11:32)
[2021-08-28] MEDS ORDERED: ZOSYN 3.373.375 GM/1 IV (11:32)
== END 2021-08-28 13:18 | DRG 190 ==
LOC: ER 14:59 → ERHOLD 16:50 → MED/SURG2 18:05
PROVIDERS: ADMIT Internal Medicine; ATTEND Internal Medicine
DX: J44.0 Chronic obstructive pulmonary disease with (acute) lower respiratory infection (principal); J18.9 Pneumonia, unspecified organism; G93.41 Metabolic encephalopathy; N17.9 Acute kidney failure, unspecified; J44.1 Chronic obstructive pulmonary disease with (acute) exacerbation; J45.909 Unspecified asthma, uncomplicated; E11.65 Type 2 diabetes mellitus with hyperglycemia; Z86.16 Personal history of COVID-19; Z20.822 Contact with and (suspected) exposure to COVID-19
CPT/HCPCS: 36415; 51700; 70450; 71045; 71250; 72125; 80048; 80053; 80202; 80307; 80320; 81001; 82140; 82550; 82948; 83036; 83605; 83735; 84100; 84484; 85025; 87040; 93306; 93880; 94799; 96372; 97139; 99251; 99284; J2060; J2543; J3370; J7030; J7040; J7050; U0002

== ENCOUNTER 2022-04-09 11:25 | Inpatient (IN) | payer MEDICARE, OTHER ==
[~2022-04-09] VITALS: Ht 175.3 cm; Wt 116.1 kg
[~2022-04-09 11:25] MED LIST changes: +VANCOMYCIN1 GM/250 M IV; +ZOSYN 3.373.375 GM/1 IV
[2022-04-09] MEDS ORDERED: SODIUM CHLORIDE 0.9% 1000ML 1,000 ML IV ONE (11:45)
[2022-04-09 12:09] LABS: BASOPHILS % 0.3 % (0.0-1.0); EOSINOPHILS % 0.1 % (0.0-6.0); HEMOGLOBIN 13.5 g/dL (12.0-16.0); LYMPHOCYTES # (AUTO) 0.6 (1.0-3.2); MEAN CORPUSCULAR HEMOGLOBIN 31.1 pg (28-32); MEAN CORPUSCULAR HGB CONC 32.9 g/dL (31-35); MEAN CORPUSCULAR VOLUME 94.5 fL (81-99); MONOCYTES # (AUTO) 0.8 (0.2-0.8); MONOCYTES % 5.5 % (4.4-11.3); NEUTROPHILS # (AUTO) 13.6 (2.1-6.9); NEUTROPHILS % 89.3 % (38.7-80.0); PLATELET COUNT 270 x10e3/uL (140-360); RED BLOOD COUNT 4.34 x10e6/uL (3.6-5.1); RED CELL DISTRIBUTION WIDTH 13.4 % (11.7-14.4)
[2022-04-09 12:21] LABS: COLOR,URINE YELLOW (YELLOW)
[2022-04-09 12:22] LABS: CLARITY,URINE CLOUDY (CLEAR); KETONES,URINE 1+ (NEGATIVE); LEUKOCYTE ESTERASE ,URINE SMALL (NEGATIVE); NITRITE,URINE NEGATIVE (NEGATIVE); PROTEIN,URINE DIPSTICK 2+ (NEGATIVE); URINE UROBILINOGEN 0.2 mg/dL (0.2 - 1)
[2022-04-09] MEDS ORDERED: CEFTRIAXONE 1 GM VIAL IV ONE (12:30)
[2022-04-09 12:31] LABS: BACTERIA,URINE FEW /HPF; EPITHELIAL CELLS,URINE RARE /LPF; RBC,URINE 0-5 /HPF (0-5); WBC,URINE (MAN) >50 /HPF (0-5)
[2022-04-09 12:31] LABS: ALBUMIN 2.1 g/dL (3.5-5.0); ALBUMIN/GLOBULIN RATIO 0.5 (0.8-2.0); ANION GAP 16.9 mmol/L (8-16); CALCIUM 9.1 mg/dL (8.4-10.2); CREATININE, SERUM 2.07 mg/dL (0.57-1.11); POTASSIUM 3.9 mmol/L (3.5-5.1)
[2022-04-09] MEDS ORDERED: SODIUM CHLORIDE 0.9% 1000ML 1,000 ML IV SCH (14:00)
[2022-04-09] MEDS ORDERED: ONDANSETRON HCL INJ 2MG/ML 2ML 2 MG/ML VIAL IV PRN (14:00)
[2022-04-09] MEDS ORDERED: DEXTROSE 50% SYRINGE 50 ML IV PRN (18:15)
[2022-04-09] MEDS ORDERED: ALBUTEROL/IPRATROPIUM 3 ML NEB NEB SCH (19:00)
[2022-04-09 19:30] VITALS: BP 153/84
[2022-04-09] MEDS ORDERED: TRESIBA100 UNIT/1 (20:04)
[2022-04-09 20:19] VITALS: BP 153/84
[2022-04-09 21:00] VITALS: BP 153/84
[2022-04-09] MEDS: INSULIN LISPRO 100 UNIT/1 ML 3ML VIAL SQ SCH (21:27)
[2022-04-10] VITALS (9 sets, daily range): BP systolic 112–142; BP diastolic 60–79
[2022-04-10 06:00] LABS: BASOPHILS # (AUTO) 0.1 (0.0-0.1); BASOPHILS % 0.3 % (0.0-1.0); HEMATOCRIT 39.6 % (34.2-44.1); HEMOGLOBIN 13.5 g/dL (12.0-16.0); LYMPHOCYTES # (AUTO) 0.4 (1.0-3.2); LYMPHOCYTES % 2.2 % (18.0-39.1); MEAN CORPUSCULAR HEMOGLOBIN 31.4 pg (28-32); MEAN CORPUSCULAR HGB CONC 34.1 g/dL (31-35); MEAN CORPUSCULAR VOLUME 92.1 fL (81-99); MONOCYTES # (AUTO) 1.1 (0.2-0.8); MONOCYTES % 6.4 % (4.4-11.3); NEUTROPHILS # (AUTO) 15.5 (2.1-6.9); NEUTROPHILS % 89.9 % (38.7-80.0); PLATELET COUNT 214 x10e3/uL (140-360); RED CELL DISTRIBUTION WIDTH 13.4 % (11.7-14.4)
[2022-04-10 06:18] LABS: ANION GAP 20.3 mmol/L (8-16); CALCIUM 8.9 mg/dL (8.4-10.2); CREATININE, SERUM 1.82 mg/dL (0.57-1.11); POTASSIUM 4.3 mmol/L (3.5-5.1)
[2022-04-10] MEDS: INSULIN LISPRO 100 UNIT/1 ML 3ML VIAL SQ SCH ×4 (09:32→21:11)
[2022-04-10] MEDS ORDERED: ONDANSETRON HCL 4 MG ORAL DISINTEGRATING TAB SL PRN (10:00)
[2022-04-10] MEDS: ASCORBIC ACID 500 MG TAB PO SCH (16:20)
[2022-04-10] MEDS ORDERED: INSULIN GLARGINE 100 UNITS/ML VIAL SQ SCH (21:00)
[2022-04-10] MEDS: ACETAMINOPHEN 325 MG TAB PO PRN (23:31)
[2022-04-11] VITALS (7 sets, daily range): BP systolic 96–147; BP diastolic 52–89
[2022-04-11 08:17] LABS: BASOPHILS # (AUTO) 0.1 (0.0-0.1); BASOPHILS % 0.3 % (0.0-1.0); HEMATOCRIT 41.3 % (34.2-44.1); LYMPHOCYTES # (AUTO) 0.4 (1.0-3.2); LYMPHOCYTES % 1.7 % (18.0-39.1); MEAN CORPUSCULAR HEMOGLOBIN 30.4 pg (28-32); MEAN CORPUSCULAR HGB CONC 31.5 g/dL (31-35); MEAN CORPUSCULAR VOLUME 96.7 fL (81-99); MONOCYTES % 4.1 % (4.4-11.3); NEUTROPHILS # (AUTO) 22.2 (2.1-6.9); NEUTROPHILS % 92.7 % (38.7-80.0); PLATELET COUNT 173 x10e3/uL (140-360); RED BLOOD COUNT 4.27 x10e6/uL (3.6-5.1); RED CELL DISTRIBUTION WIDTH 13.5 % (11.7-14.4)
[2022-04-11 08:43] LABS: ALBUMIN 1.8 g/dL (3.5-5.0); ALBUMIN/GLOBULIN RATIO 0.4 (0.8-2.0); ANION GAP 27.4 mmol/L (8-16); CALCIUM 9.2 mg/dL (8.4-10.2); CREATININE, SERUM 2.02 mg/dL (0.57-1.11); POTASSIUM 4.4 mmol/L (3.5-5.1)
[2022-04-11] MEDS: ASCORBIC ACID 500 MG TAB PO SCH ×2 (08:58→17:49)
[2022-04-11] MEDS: MEROPENEM 1 GM in SODIUM CHLORIDE 0.9% 100 ML IV SCH ×2 (08:58→21:54)
[2022-04-11] MEDS: INSULIN LISPRO 100 UNIT/1 ML 3ML VIAL SQ SCH ×4 (09:07→21:56)
[2022-04-11 09:20] LABS: BAND NEUTROPHILS % (MANUAL) 4 %; LYMPHOCYTES % (MANUAL) 1 % (19-48); MONOCYTES % (MANUAL) 4 % (3.4-9.0); NEUTROPHILS % (MANUAL) 91 % (40-74); PLATELET ESTIMATE ADEQUATE; PLATELET MORPHOLOGY COMMENT NORMAL; RBC MORPHOLOGY COMMENT NORMAL
[2022-04-11] MEDS: ACETAMINOPHEN 325 MG TAB PO PRN (12:21)
[2022-04-11] MEDS: INSULIN GLARGINE 100 UNITS/ML VIAL SQ SCH (22:01)
[2022-04-12] VITALS (8 sets, daily range): BP systolic 88–115; BP diastolic 52–75
[2022-04-12 07:22] LABS: BASOPHILS # (AUTO) 0.1 (0.0-0.1); BASOPHILS % 0.4 % (0.0-1.0); HEMATOCRIT 39.7 % (34.2-44.1); HEMOGLOBIN 13.1 g/dL (12.0-16.0); LYMPHOCYTES # (AUTO) 0.6 (1.0-3.2); LYMPHOCYTES % 2.8 % (18.0-39.1); MEAN CORPUSCULAR VOLUME 93.9 fL (81-99); MONOCYTES # (AUTO) 1.3 (0.2-0.8); MONOCYTES % 5.9 % (4.4-11.3); NEUTROPHILS # (AUTO) 19.9 (2.1-6.9); NEUTROPHILS % 88.8 % (38.7-80.0); PLATELET COUNT 160 x10e3/uL (140-360); RED BLOOD COUNT 4.23 x10e6/uL (3.6-5.1); RED CELL DISTRIBUTION WIDTH 13.4 % (11.7-14.4)
[2022-04-12] MEDS: INSULIN LISPRO 100 UNIT/1 ML 3ML VIAL SQ SCH ×4 (07:30→21:00)
[2022-04-12 07:51] LABS: ALBUMIN 1.7 g/dL (3.5-5.0); ALBUMIN/GLOBULIN RATIO 0.3 (0.8-2.0); ANION GAP 19.8 mmol/L (8-16); CREATININE, SERUM 2.12 mg/dL (0.57-1.11); POTASSIUM 3.8 mmol/L (3.5-5.1)
[2022-04-12] MEDS: MEROPENEM 1 GM in SODIUM CHLORIDE 0.9% 100 ML IV SCH (08:19)
[2022-04-12] MEDS: ASCORBIC ACID 500 MG TAB PO SCH ×2 (09:18→17:20)
[2022-04-12 09:52] LABS: BAND NEUTROPHILS % (MANUAL) 5 %; LYMPHOCYTES % (MANUAL) 1 % (19-48); METAMYELOCYTES % (MANUAL) 1 % (0-0); MONOCYTES % (MANUAL) 6 % (3.4-9.0); NEUTROPHILS % (MANUAL) 87 % (40-74); PLATELET ESTIMATE ADEQUATE
[2022-04-12 09:53] LABS: PLATELET MORPHOLOGY COMMENT NORMAL; RBC MORPHOLOGY COMMENT NORMAL
[2022-04-12] MEDS: SODIUM CHLORIDE 0.9% 1000ML 1,000 ML IV SCH (17:20)
[2022-04-12 18:06] LABS: PHOSPHORUS 2.3 MG/DL (2.3-4.7)
[2022-04-12] MEDS: INSULIN GLARGINE 100 UNITS/ML VIAL SQ SCH (21:16)
[2022-04-13] VITALS (7 sets, daily range): BP systolic 93–124; BP diastolic 59–76
[2022-04-13] MEDS: SODIUM CHLORIDE 0.9% 1000ML 1,000 ML IV SCH ×2 (06:35→21:15)
[2022-04-13] MEDS: INSULIN LISPRO 100 UNIT/1 ML 3ML VIAL SQ SCH ×4 (08:01→21:15)
[2022-04-13 08:11] LABS: BASOPHILS # (AUTO) 0.1 (0.0-0.1); BASOPHILS % 0.7 % (0.0-1.0); EOSINOPHILS # (AUTO) 0.1 (0.0-0.4); EOSINOPHILS % 0.4 % (0.0-6.0); HEMATOCRIT 40.2 % (34.2-44.1); HEMOGLOBIN 13.4 g/dL (12.0-16.0); LYMPHOCYTES # (AUTO) 1.2 (1.0-3.2); LYMPHOCYTES % 6.1 % (18.0-39.1); MEAN CORPUSCULAR HEMOGLOBIN 30.5 pg (28-32); MEAN CORPUSCULAR HGB CONC 33.3 g/dL (31-35); MEAN CORPUSCULAR VOLUME 91.4 fL (81-99); MONOCYTES # (AUTO) 1.4 (0.2-0.8); MONOCYTES % 7.1 % (4.4-11.3); NEUTROPHILS # (AUTO) 15.6 (2.1-6.9); NEUTROPHILS % 80.9 % (38.7-80.0); PLATELET COUNT 148 x10e3/uL (140-360); RED CELL DISTRIBUTION WIDTH 13.8 % (11.7-14.4)
[2022-04-13] MEDS: ASCORBIC ACID 500 MG TAB PO SCH ×2 (08:14→16:43)
[2022-04-13 08:33] LABS: ALBUMIN 1.5 g/dL (3.5-5.0); ALBUMIN/GLOBULIN RATIO 0.3 (0.8-2.0); ANION GAP 19.8 mmol/L (8-16); CALCIUM 8.9 mg/dL (8.4-10.2); CREATININE, SERUM 1.67 mg/dL (0.57-1.11); POTASSIUM 3.8 mmol/L (3.5-5.1)
[2022-04-13] MEDS: FLUCONAZOLE 200 MG/100 ML 100 ML IV SCH (10:18)
[2022-04-13 17:08] LABS: BASOPHILS # (AUTO) 0.1 (0.0-0.1); BASOPHILS % 0.5 % (0.0-1.0); EOSINOPHILS # (AUTO) 0.2 (0.0-0.4); EOSINOPHILS % 1.1 % (0.0-6.0); HEMATOCRIT 41.7 % (34.2-44.1); HEMOGLOBIN 13.4 g/dL (12.0-16.0); LYMPHOCYTES # (AUTO) 1.5 (1.0-3.2); LYMPHOCYTES % 7.8 % (18.0-39.1); MEAN CORPUSCULAR HEMOGLOBIN 30.5 pg (28-32); MEAN CORPUSCULAR HGB CONC 32.1 g/dL (31-35); MEAN CORPUSCULAR VOLUME 94.8 fL (81-99); MONOCYTES # (AUTO) 1.5 (0.2-0.8); MONOCYTES % 8.1 % (4.4-11.3); NEUTROPHILS # (AUTO) 14.7 (2.1-6.9); PLATELET COUNT 165 x10e3/uL (140-360); RED CELL DISTRIBUTION WIDTH 13.9 % (11.7-14.4)
[2022-04-13 17:27] LABS: ANION GAP 16.5 mmol/L (8-16); CALCIUM 8.7 mg/dL (8.4-10.2); CREATININE, SERUM 1.45 mg/dL (0.57-1.11); POTASSIUM 3.5 mmol/L (3.5-5.1)
[2022-04-13] MEDS: INSULIN GLARGINE 100 UNITS/ML VIAL SQ SCH (21:10)
[2022-04-13] MEDS ORDERED: FAMOTIDINE 20 MG TAB PO ONE (22:15)
[2022-04-13] MEDS ORDERED: CALCIUM CARBONATE 500 MG CHEWABLE TABS PO PRN (22:15)
[2022-04-14] VITALS (8 sets, daily range): BP systolic 102–124; BP diastolic 64–77
[2022-04-14 00:37] LABS: CREATININE,URINE RANDOM 62.42 mg/dL (47-110); TOTAL PROTEIN 24HR, URINE 1001.6 mg/24hr (50-100); TOTAL PROTEIN, URINE 87.1 mg/dL (1-14)
[2022-04-14 01:03] LABS: SODIUM,URINE < 20 mmol/L
[2022-04-14 01:47] LABS: EOSINOPHIL SMEAR,URINE NONE SEEN (NONE SEEN)
[2022-04-14 05:45] LABS: BASOPHILS # (AUTO) 0.1 (0.0-0.1); BASOPHILS % 0.5 % (0.0-1.0); EOSINOPHILS # (AUTO) 0.2 (0.0-0.4); EOSINOPHILS % 1.1 % (0.0-6.0); HEMATOCRIT 40.3 % (34.2-44.1); HEMOGLOBIN 13.1 g/dL (12.0-16.0); LYMPHOCYTES # (AUTO) 1.2 (1.0-3.2); LYMPHOCYTES % 7.2 % (18.0-39.1); MEAN CORPUSCULAR HEMOGLOBIN 30.6 pg (28-32); MEAN CORPUSCULAR HGB CONC 32.5 g/dL (31-35); MEAN CORPUSCULAR VOLUME 94.2 fL (81-99); MONOCYTES # (AUTO) 1.1 (0.2-0.8); MONOCYTES % 6.4 % (4.4-11.3); NEUTROPHILS # (AUTO) 13.3 (2.1-6.9); NEUTROPHILS % 78.7 % (38.7-80.0); PLATELET COUNT 179 x10e3/uL (140-360); RED BLOOD COUNT 4.28 x10e6/uL (3.6-5.1); RED CELL DISTRIBUTION WIDTH 13.9 % (11.7-14.4)
[2022-04-14 06:18] LABS: ALBUMIN 1.5 g/dL (3.5-5.0); ALBUMIN/GLOBULIN RATIO 0.3 (0.8-2.0); ANION GAP 16.5 mmol/L (8-16); CALCIUM 8.6 mg/dL (8.4-10.2); CREATININE, SERUM 1.1 mg/dL (0.57-1.11); POTASSIUM 3.5 mmol/L (3.5-5.1)
[2022-04-14] MEDS: ALBUTEROL/IPRATROPIUM 3 ML NEB NEB PRN (07:40)
[2022-04-14] MEDS: ASCORBIC ACID 500 MG TAB PO SCH ×2 (08:26→16:29)
[2022-04-14] MEDS: FAMOTIDINE 20 MG TAB PO SCH ×2 (08:26→16:29)
[2022-04-14] MEDS: INSULIN LISPRO 100 UNIT/1 ML 3ML VIAL SQ SCH ×4 (09:14→21:12)
[2022-04-14] MEDS: FLUCONAZOLE 200 MG/100 ML 100 ML IV SCH (10:58)
[2022-04-14] MEDS: SODIUM CHLORIDE 0.9% 1000ML 1,000 ML IV SCH (10:58)
[2022-04-14] MEDS ORDERED: DOCUSATE SODIUM 100 MG CAP PO PRN (15:00)
[2022-04-14] MEDS ORDERED: BISACODYL 10 MG SUPP PR PRN (15:00)
[2022-04-14] MEDS: INSULIN GLARGINE 100 UNITS/ML VIAL SQ SCH (21:13)
[2022-04-15 01:13] VITALS: BP 133/78
[2022-04-15 05:13] VITALS: BP 127/88
[2022-04-15 05:41] LABS: BASOPHILS # (AUTO) 0.1 (0.0-0.1); BASOPHILS % 0.8 % (0.0-1.0); EOSINOPHILS # (AUTO) 0.3 (0.0-0.4); EOSINOPHILS % 1.5 % (0.0-6.0); HEMATOCRIT 38.7 % (34.2-44.1); LYMPHOCYTES # (AUTO) 1.4 (1.0-3.2); LYMPHOCYTES % 8.3 % (18.0-39.1); MEAN CORPUSCULAR HEMOGLOBIN 30.9 pg (28-32); MEAN CORPUSCULAR HGB CONC 33.6 g/dL (31-35); MEAN CORPUSCULAR VOLUME 91.9 fL (81-99); MONOCYTES # (AUTO) 1.1 (0.2-0.8); MONOCYTES % 6.5 % (4.4-11.3); NEUTROPHILS % 76.1 % (38.7-80.0); PLATELET COUNT 224 x10e3/uL (140-360); RED BLOOD COUNT 4.21 x10e6/uL (3.6-5.1); RED CELL DISTRIBUTION WIDTH 14.3 % (11.7-14.4)
[2022-04-15 06:10] LABS: ANION GAP 14.6 mmol/L (8-16); CALCIUM 8.9 mg/dL (8.4-10.2); CREATININE, SERUM 0.97 mg/dL (0.57-1.11); POTASSIUM 3.6 mmol/L (3.5-5.1)
[2022-04-15] MEDS: INSULIN LISPRO 100 UNIT/1 ML 3ML VIAL SQ SCH ×4 (07:30→21:00)
[2022-04-15 07:44] LABS: BAND NEUTROPHILS % (MANUAL) 2 %; LYMPHOCYTES % (MANUAL) 10 % (19-48); METAMYELOCYTES % (MANUAL) 2 % (0-0); MONOCYTES % (MANUAL) 2 % (3.4-9.0); NEUTROPHILS % (MANUAL) 84 % (40-74); PLATELET ESTIMATE ADEQUATE; PLATELET MORPHOLOGY COMMENT NORMAL
[2022-04-15 09:24] VITALS: BP 116/86
[2022-04-15] MEDS: ASCORBIC ACID 500 MG TAB PO SCH ×2 (09:42→17:35)
[2022-04-15] MEDS: FAMOTIDINE 20 MG TAB PO SCH ×2 (09:42→17:35)
[2022-04-15] MEDS: FLUCONAZOLE 200 MG/100 ML 100 ML IV SCH (09:43)
[2022-04-15 12:59] VITALS: BP 134/93
[2022-04-15 17:33] VITALS: BP 114/98
[2022-04-15] MEDS: ALBUTEROL/IPRATROPIUM 3 ML NEB NEB PRN (19:20)
[2022-04-15 20:13] VITALS: BP 137/82
[2022-04-15] MEDS: INSULIN GLARGINE 100 UNITS/ML VIAL SQ SCH (21:00)
[2022-04-16 01:25] VITALS: BP 136/96
[2022-04-16 05:49] LABS: BASOPHILS # (AUTO) 0.1 (0.0-0.1); BASOPHILS % 0.3 % (0.0-1.0); EOSINOPHILS # (AUTO) 0.3 (0.0-0.4); EOSINOPHILS % 1.8 % (0.0-6.0); HEMOGLOBIN 12.8 g/dL (12.0-16.0); LYMPHOCYTES # (AUTO) 1.8 (1.0-3.2); LYMPHOCYTES % 10.5 % (18.0-39.1); MEAN CORPUSCULAR HEMOGLOBIN 30.7 pg (28-32); MEAN CORPUSCULAR VOLUME 95.9 fL (81-99); MONOCYTES # (AUTO) 1.1 (0.2-0.8); MONOCYTES % 6.4 % (4.4-11.3); NEUTROPHILS # (AUTO) 12.6 (2.1-6.9); NEUTROPHILS % 72.9 % (38.7-80.0); PLATELET COUNT 230 x10e3/uL (140-360); RED BLOOD COUNT 4.17 x10e6/uL (3.6-5.1)
[2022-04-16 07:03] LABS: BAND NEUTROPHILS % (MANUAL) 1 %; EOSINOPHILS % (MANUAL) 4 % (0-7); LYMPHOCYTES % (MANUAL) 10 % (19-48); METAMYELOCYTES % (MANUAL) 3 % (0-0); MONOCYTES % (MANUAL) 9 % (3.4-9.0); MYELOCYTES % (MANUAL) 3 % (0-0); NEUTROPHILS % (MANUAL) 69 % (40-74)
[2022-04-16 07:04] LABS: PLATELET ESTIMATE ADEQUATE; PLATELET MORPHOLOGY COMMENT NORMAL; RBC MORPHOLOGY COMMENT NORMAL
[2022-04-16] MEDS: INSULIN LISPRO 100 UNIT/1 ML 3ML VIAL SQ SCH ×4 (07:30→22:14)
[2022-04-16 08:07] VITALS: BP 131/74
[2022-04-16] MEDS: FAMOTIDINE 20 MG TAB PO SCH ×2 (08:14→17:43)
[2022-04-16] MEDS: ASCORBIC ACID 500 MG TAB PO SCH ×2 (10:55→17:43)
[2022-04-16] MEDS: FLUCONAZOLE 200 MG/100 ML 100 ML IV SCH (10:59)
[2022-04-16 11:44] VITALS: BP 124/70
[2022-04-16 15:12] LABS: ALPHA 2 GLOBULIN URINE PEP 19.5 % (.)
[2022-04-16 16:00] VITALS: BP 119/80
[2022-04-16 18:27] VITALS: BP 119/80
[2022-04-16 20:00] VITALS: BP 124/50
[2022-04-16] MEDS: INSULIN GLARGINE 100 UNITS/ML VIAL SQ SCH (21:00)
[2022-04-17] VITALS (8 sets, daily range): BP systolic 122–165; BP diastolic 65–89
[2022-04-17] MEDS ORDERED: SODIUM CHLORIDE 0.9% 250ML 250 ML ONE (05:39)
[2022-04-17 06:16] LABS: BASOPHILS # (AUTO) 0.2 (0.0-0.1); BASOPHILS % 1.2 % (0.0-1.0); EOSINOPHILS # (AUTO) 0.3 (0.0-0.4); EOSINOPHILS % 1.5 % (0.0-6.0); HEMATOCRIT 38.2 % (34.2-44.1); HEMOGLOBIN 12.7 g/dL (12.0-16.0); LYMPHOCYTES % 9.7 % (18.0-39.1); MEAN CORPUSCULAR HEMOGLOBIN 30.6 pg (28-32); MEAN CORPUSCULAR HGB CONC 33.2 g/dL (31-35); MONOCYTES % 4.9 % (4.4-11.3); NEUTROPHILS # (AUTO) 15.3 (2.1-6.9); NEUTROPHILS % 73.7 % (38.7-80.0); PLATELET COUNT 271 x10e3/uL (140-360); RED BLOOD COUNT 4.15 x10e6/uL (3.6-5.1); RED CELL DISTRIBUTION WIDTH 14.1 % (11.7-14.4)
[2022-04-17 06:39] LABS: ANION GAP 14.4 mmol/L (8-16); CALCIUM 8.7 mg/dL (8.4-10.2); CREATININE, SERUM 0.77 mg/dL (0.57-1.11); MAGNESIUM 1.5 MG/DL (1.3-2.1); PHOSPHORUS 3.4 MG/DL (2.3-4.7); POTASSIUM 3.4 mmol/L (3.5-5.1)
[2022-04-17] MEDS: INSULIN LISPRO 100 UNIT/1 ML 3ML VIAL SQ SCH ×4 (07:30→21:07)
[2022-04-17] MEDS: ASCORBIC ACID 500 MG TAB PO SCH ×2 (07:50→16:30)
[2022-04-17] MEDS: FAMOTIDINE 20 MG TAB PO SCH ×2 (07:50→16:30)
[2022-04-17 09:15] LABS: EOSINOPHILS % (MANUAL) 3 % (0-7); LYMPHOCYTES % (MANUAL) 14 % (19-48); MONOCYTES % (MANUAL) 4 % (3.4-9.0); MYELOCYTES % (MANUAL) 6 % (0-0); NEUTROPHILS % (MANUAL) 72 % (40-74); PLATELET ESTIMATE ADEQUATE; PLATELET MORPHOLOGY COMMENT NORMAL; RBC MORPHOLOGY COMMENT NORMAL
[2022-04-17] MEDS: FLUCONAZOLE 200 MG/100 ML 100 ML IV SCH (10:13)
[2022-04-17] MEDS: INSULIN GLARGINE 100 UNITS/ML VIAL SQ SCH (21:00)
[2022-04-18] VITALS (8 sets, daily range): BP systolic 130–161; BP diastolic 70–99
[2022-04-18 05:06] LABS: BASOPHILS # (AUTO) 0.2 (0.0-0.1); BASOPHILS % 0.9 % (0.0-1.0); EOSINOPHILS # (AUTO) 0.4 (0.0-0.4); EOSINOPHILS % 1.9 % (0.0-6.0); HEMATOCRIT 39.8 % (34.2-44.1); HEMOGLOBIN 12.8 g/dL (12.0-16.0); LYMPHOCYTES # (AUTO) 2.1 (1.0-3.2); LYMPHOCYTES % 9.9 % (18.0-39.1); MEAN CORPUSCULAR HEMOGLOBIN 30.5 pg (28-32); MEAN CORPUSCULAR HGB CONC 32.2 g/dL (31-35); MEAN CORPUSCULAR VOLUME 94.8 fL (81-99); MONOCYTES # (AUTO) 1.3 (0.2-0.8); MONOCYTES % 5.9 % (4.4-11.3); NEUTROPHILS # (AUTO) 15.6 (2.1-6.9); NEUTROPHILS % 73.4 % (38.7-80.0); PLATELET COUNT 288 x10e3/uL (140-360); RED CELL DISTRIBUTION WIDTH 13.9 % (11.7-14.4)
[2022-04-18 05:46] LABS: ANION GAP 14.6 mmol/L (8-16); CALCIUM 8.6 mg/dL (8.4-10.2); CREATININE, SERUM 0.82 mg/dL (0.57-1.11); MAGNESIUM 1.5 MG/DL (1.3-2.1); PHOSPHORUS 3.2 MG/DL (2.3-4.7); POTASSIUM 3.6 mmol/L (3.5-5.1)
[2022-04-18 07:50] LABS: EOSINOPHILS % (MANUAL) 1 % (0-7); LYMPHOCYTES % (MANUAL) 12 % (19-48); METAMYELOCYTES % (MANUAL) 3 % (0-0); MONOCYTES % (MANUAL) 6 % (3.4-9.0); MYELOCYTES % (MANUAL) 3 % (0-0); NEUTROPHILS % (MANUAL) 75 % (40-74)
[2022-04-18 07:52] LABS: PLATELET ESTIMATE ADEQUATE; PLATELET MORPHOLOGY COMMENT NORMAL; RBC MORPHOLOGY COMMENT NORMAL
[2022-04-18] MEDS: FAMOTIDINE 20 MG TAB PO SCH ×2 (09:13→16:44)
[2022-04-18] MEDS: ASCORBIC ACID 500 MG TAB PO SCH ×2 (09:14→16:44)
[2022-04-18] MEDS: INSULIN LISPRO 100 UNIT/1 ML 3ML VIAL SQ SCH ×4 (09:28→21:45)
[2022-04-18] MEDS: FLUCONAZOLE 200 MG/100 ML 100 ML IV SCH (09:49)
[2022-04-18] MEDS: METRONIDAZOLE 500MG/NS 100ML 100 ML IV SCH ×2 (13:32→22:39)
[2022-04-18] MEDS ORDERED: SODIUM CHLORIDE 0.9% 250ML 250 ML ONE (20:49)
[2022-04-18] MEDS: INSULIN GLARGINE 100 UNITS/ML VIAL SQ SCH (21:00)
[2022-04-18] MEDS: ACETAMINOPHEN 325 MG TAB PO PRN (21:03)
[2022-04-19] VITALS (8 sets, daily range): BP systolic 133–164; BP diastolic 71–90
[2022-04-19] MEDS: METRONIDAZOLE 500MG/NS 100ML 100 ML IV SCH (05:43)
[2022-04-19] MEDS: INSULIN LISPRO 100 UNIT/1 ML 3ML VIAL SQ SCH ×4 (07:30→21:30)
[2022-04-19 07:43] LABS: BASOPHILS # (AUTO) 0.2 (0.0-0.1); EOSINOPHILS # (AUTO) 0.3 (0.0-0.4); EOSINOPHILS % 1.9 % (0.0-6.0); HEMATOCRIT 38.9 % (34.2-44.1); HEMOGLOBIN 12.7 g/dL (12.0-16.0); LYMPHOCYTES # (AUTO) 1.9 (1.0-3.2); MEAN CORPUSCULAR HEMOGLOBIN 30.5 pg (28-32); MEAN CORPUSCULAR HGB CONC 32.6 g/dL (31-35); MEAN CORPUSCULAR VOLUME 93.5 fL (81-99); MONOCYTES % 5.8 % (4.4-11.3); NEUTROPHILS % 74.1 % (38.7-80.0); PLATELET COUNT 290 x10e3/uL (140-360); RED BLOOD COUNT 4.16 x10e6/uL (3.6-5.1); RED CELL DISTRIBUTION WIDTH 14.2 % (11.7-14.4)
[2022-04-19 08:00] LABS: ANION GAP 14.5 mmol/L (8-16); CALCIUM 8.5 mg/dL (8.4-10.2); CREATININE, SERUM 0.78 mg/dL (0.57-1.11); POTASSIUM 3.5 mmol/L (3.5-5.1)
[2022-04-19] MEDS: FAMOTIDINE 20 MG TAB PO SCH ×2 (08:30→16:30)
[2022-04-19] MEDS: ASCORBIC ACID 500 MG TAB PO SCH ×2 (09:00→17:00)
[2022-04-19] MEDS: FLUCONAZOLE 200 MG/100 ML 100 ML IV SCH (10:15)
[2022-04-19 12:56] LABS: BAND NEUTROPHILS % (MANUAL) 4 %; LYMPHOCYTES % (MANUAL) 14 % (19-48); MONOCYTES % (MANUAL) 4 % (3.4-9.0); NEUTROPHILS % (MANUAL) 78 % (40-74)
[2022-04-19 12:57] LABS: PLATELET ESTIMATE ADEQUATE; PLATELET MORPHOLOGY COMMENT NORMAL; RBC MORPHOLOGY COMMENT NORMAL
[2022-04-19] MEDS: INSULIN GLARGINE 100 UNITS/ML VIAL SQ SCH (21:30)
[2022-04-20] VITALS (7 sets, daily range): BP systolic 127–147; BP diastolic 62–85
[2022-04-20] MEDS: FLUCONAZOLE 200 MG/100 ML 100 ML IV SCH (08:56)
[2022-04-20] MEDS: FAMOTIDINE 20 MG TAB PO SCH ×2 (08:56→16:33)
[2022-04-20] MEDS: ASCORBIC ACID 500 MG TAB PO SCH ×2 (08:56→16:34)
[2022-04-20] MEDS: INSULIN LISPRO 100 UNIT/1 ML 3ML VIAL SQ SCH ×4 (08:58→20:26)
[2022-04-20] MEDS: INSULIN GLARGINE 100 UNITS/ML VIAL SQ SCH (20:27)
[2022-04-21] VITALS: BP 137/68
[2022-04-21 04:20] VITALS: BP 132/60
[2022-04-21] MEDS: INSULIN LISPRO 100 UNIT/1 ML 3ML VIAL SQ SCH (07:30)
[2022-04-21] MEDS: FAMOTIDINE 20 MG TAB PO SCH (07:43)
[2022-04-21 07:47] LABS: ALBUMIN 2.1 g/dL (3.5-5.0); ALBUMIN/GLOBULIN RATIO 0.5 (0.8-2.0); ANION GAP 15.6 mmol/L (8-16); CALCIUM 8.6 mg/dL (8.4-10.2); CREATININE, SERUM 0.82 mg/dL (0.57-1.11); POTASSIUM 3.6 mmol/L (3.5-5.1)
[2022-04-21 07:48] VITALS: BP 146/84
[2022-04-21] MEDS: ASCORBIC ACID 500 MG TAB PO SCH (09:09)
[2022-04-21] MEDS: FLUCONAZOLE 200 MG/100 ML 100 ML IV SCH (09:10)
== END 2022-04-21 11:27 | DRG 871 ==
LOC: ER 11:29 → ERHOLD 13:56 → MED/SURG3 18:05 → OBSVTOIN 04-10 07:57 → MED/SURG 04-18 18:30
PROVIDERS: ADMIT Internal Medicine; ATTEND Internal Medicine
PROC: 3E03329 Introduction of Other Anti-infective into Peripheral Vein, Percutaneous Approach (ICD-10-PCS; 2022-04-09)
PROC: 5A0935A Assistance with Respiratory Ventilation, Less than 24 Consecutive Hours, High Flow/Velocity Cannula (ICD-10-PCS; principal; 2022-04-10)
PROC: 05HY33Z Insertion of Infusion Device into Upper Vein, Percutaneous Approach (ICD-10-PCS; 2022-04-18)
PROC: 3E04329 Introduction of Other Anti-infective into Central Vein, Percutaneous Approach (ICD-10-PCS; 2022-04-18)
DX: A41.52 Sepsis due to Pseudomonas (principal); G93.41 Metabolic encephalopathy; J96.20 Acute and chronic respiratory failure, unspecified whether with hypoxia or hypercapnia; N17.0 Acute kidney failure with tubular necrosis; E87.1 Hypo-osmolality and hyponatremia; J44.1 Chronic obstructive pulmonary disease with (acute) exacerbation; B37.49 Other urogenital candidiasis; R33.9 Retention of urine, unspecified; E78.5 Hyperlipidemia, unspecified; E11.59 Type 2 diabetes mellitus with other circulatory complications; Z74.09 Other reduced mobility; E11.65 Type 2 diabetes mellitus with hyperglycemia; Z99.81 Dependence on supplemental oxygen; E66.9 Obesity, unspecified; Z68.37 Body mass index [BMI] 37.0-37.9, adult; E11.69 Type 2 diabetes mellitus with other specified complication; F32.A Depression, unspecified
CPT/HCPCS: 36415; 71045; 76700; 80048; 80053; 81001; 81015; 81050; 82575; 82948; 83605; 83735; 83970; 84100; 84156; 84165; 84166; 84300; 84550; 85025; 86021; 86039; 86160; 86431; 87040; 87071; 87086; 87186; 87205; 93005; 94640; 94799; 96372; 99251; 99284; G0378; J0696; J1450; J1815; J2185; J7030; J7050

== ENCOUNTER 2022-08-15 13:45 | Inpatient (IN) | payer MEDICARE, OTHER ==
[2022-08-15] VITALS (15 sets, daily range): BP systolic 85–145; BP diastolic 59–99
[~2022-08-15] VITALS: Ht 172.7 cm; Wt 110.2 kg
[~2022-08-15 13:45] MED LIST changes: +ACETAMINOPHEN325 M1 PO; +CEFTRIAXONE1 GM IV; +FAMOTIDINE20 MG PO; +HUMULIN R100 UNIT/2 SQ; +NYAMYC15 GM TOP; +ONDANSETRON ODT4 MG PO; +TRESIBA100 UNIT/1
[2022-08-15] MEDS ORDERED: ONDANSETRON HCL INJ 2MG/ML 2ML 2 MG/ML VIAL IV PRN (14:15)
[2022-08-15] MEDS ORDERED: SODIUM CHLORIDE FLUSH 10 ML SYR INJ PRN (14:15)
[2022-08-15 14:16] LABS: BASOPHILS # (AUTO) 0.1 (0.0-0.1); BASOPHILS % 0.7 % (0.0-1.0); EOSINOPHILS # (AUTO) 0.1 (0.0-0.4); EOSINOPHILS % 0.6 % (0.0-6.0); HEMATOCRIT 46.6 % (34.2-44.1); HEMOGLOBIN 14.3 g/dL (12.0-16.0); LYMPHOCYTES # (AUTO) 1.1 (1.0-3.2); LYMPHOCYTES % 8.5 % (18.0-39.1); MEAN CORPUSCULAR HEMOGLOBIN 28.5 pg (28-32); MEAN CORPUSCULAR HGB CONC 30.7 g/dL (31-35); MEAN CORPUSCULAR VOLUME 92.8 fL (81-99); MONOCYTES # (AUTO) 0.8 (0.2-0.8); MONOCYTES % 6.3 % (4.4-11.3); NEUTROPHILS # (AUTO) 11.1 (2.1-6.9); NEUTROPHILS % 83.3 % (38.7-80.0); PLATELET COUNT 264 x10e3/uL (140-360); RED BLOOD COUNT 5.02 x10e6/uL (3.6-5.1)
[2022-08-15 14:27] LABS: INR 1.05; PROTHROMBIN TIME 13.9 seconds (11.9-14.5)
[2022-08-15 14:28] LABS: PARTIAL THROMBOPLASTIN TIME 24.9 seconds (23.8-35.5)
[2022-08-15 14:40] LABS: ALBUMIN 2.3 g/dL (3.5-5.0); ALBUMIN/GLOBULIN RATIO 0.6 (0.8-2.0); ANION GAP 15.9 mmol/L (8-16); CALCIUM 8.7 mg/dL (8.4-10.2); CREATININE, SERUM 1.33 mg/dL (0.57-1.11); POTASSIUM 3.9 mmol/L (3.5-5.1)
[2022-08-15 14:46] LABS: CREATINE KINASE MB 2.5 ng/mL (0-5.0)
[2022-08-15] MEDS ORDERED: ACETAMINOPHEN 325 MG TAB PO PRN (16:15)
[2022-08-15] MEDS: FAMOTIDINE 20 MG TAB PO SCH (16:30)
[2022-08-15] MEDS ORDERED: LIDOCAINE HCL 2% LOCAL 20 ML VIAL ONE (17:09)
[2022-08-15 17:51] LABS: BODY FLUID APPEARANCE CLOUDY; BODY FLUID COLOR YELLOW; BODY FLUID TYPE PLEURAL
[2022-08-15] MEDS ORDERED: ACIDOPHILUS1 EAC1 PO (17:55)
[2022-08-15] MEDS ORDERED: HUMULIN R100 UNIT/2 INJ (17:55)
[2022-08-15] MEDS ORDERED: TRESIBA FL100 UNIT/1 SQ (17:55)
[2022-08-15] MEDS ORDERED: NICOTINE PATCH1 EACH TOP (17:55)
[2022-08-15] MEDS ORDERED: LUMIGAN2.5 M1 OP (17:55)
[2022-08-15 18:21] LABS: WBC,BODY FLUID 153 cells/uL
[2022-08-15 18:22] LABS: RBC,BODY FLUID < 2000 cells/uL
[2022-08-15 19:12] LABS: MONO/MACROPHG,BODY FLUID 9 %; NEUTROPHILS,BODY FLUID 39 %
[2022-08-15 19:46] LABS: LYMPHOCYTES,BODY FLUID 52 %
[2022-08-16] VITALS (18 sets, daily range): BP systolic 89–124; BP diastolic 55–90
[2022-08-16] MEDS: FAMOTIDINE 20 MG TAB PO SCH ×2 (07:52→17:41)
[2022-08-16] MEDS: SERTRALINE HCL 50 MG TAB PO SCH (07:52)
[2022-08-16 08:52] LABS: BASOPHILS # (AUTO) 0.1 (0.0-0.1); BASOPHILS % 0.7 % (0.0-1.0); EOSINOPHILS % 0.2 % (0.0-6.0); HEMATOCRIT 48.3 % (34.2-44.1); HEMOGLOBIN 14.6 g/dL (12.0-16.0); LYMPHOCYTES % 8.3 % (18.0-39.1); MEAN CORPUSCULAR HEMOGLOBIN 28.3 pg (28-32); MEAN CORPUSCULAR HGB CONC 30.2 g/dL (31-35); MEAN CORPUSCULAR VOLUME 93.6 fL (81-99); MONOCYTES # (AUTO) 0.6 (0.2-0.8); MONOCYTES % 4.5 % (4.4-11.3); NEUTROPHILS # (AUTO) 10.5 (2.1-6.9); NEUTROPHILS % 85.8 % (38.7-80.0); PLATELET COUNT 224 x10e3/uL (140-360); RED BLOOD COUNT 5.16 x10e6/uL (3.6-5.1); RED CELL DISTRIBUTION WIDTH 14.4 % (11.7-14.4)
[2022-08-16 09:21] LABS: CREATINE KINASE MB 1.9 ng/mL (0-5.0)
[2022-08-16 09:35] LABS: ALBUMIN 2.1 g/dL (3.5-5.0); ALBUMIN/GLOBULIN RATIO 0.7 (0.8-2.0); ANION GAP 18.2 mmol/L (8-16); CALCIUM 8.8 mg/dL (8.4-10.2); CREATININE, SERUM 1.28 mg/dL (0.57-1.11); POTASSIUM 4.2 mmol/L (3.5-5.1)
[2022-08-16 13:44] LABS: CREATINE KINASE MB 1.7 ng/mL (0-5.0)
[2022-08-16] MEDS ORDERED: SODIUM CHLORIDE 0.9% 1000ML 1,000 ML ONE (15:28)
[2022-08-17] VITALS (9 sets, daily range): BP systolic 89–129; BP diastolic 64–100
[2022-08-17 05:45] LABS: BASOPHILS # (AUTO) 0.1 (0.0-0.1); BASOPHILS % 0.6 % (0.0-1.0); EOSINOPHILS # (AUTO) 0.1 (0.0-0.4); EOSINOPHILS % 0.8 % (0.0-6.0); HEMATOCRIT 48.6 % (34.2-44.1); LYMPHOCYTES # (AUTO) 1.3 (1.0-3.2); LYMPHOCYTES % 14.5 % (18.0-39.1); MEAN CORPUSCULAR HEMOGLOBIN 27.8 pg (28-32); MEAN CORPUSCULAR HGB CONC 28.8 g/dL (31-35); MEAN CORPUSCULAR VOLUME 96.6 fL (81-99); MONOCYTES # (AUTO) 0.5 (0.2-0.8); MONOCYTES % 6.1 % (4.4-11.3); NEUTROPHILS # (AUTO) 6.9 (2.1-6.9); NEUTROPHILS % 77.5 % (38.7-80.0); PLATELET COUNT 219 x10e3/uL (140-360); RED BLOOD COUNT 5.03 x10e6/uL (3.6-5.1); RED CELL DISTRIBUTION WIDTH 14.2 % (11.7-14.4)
[2022-08-17 06:17] LABS: ALBUMIN 2.1 g/dL (3.5-5.0); ALBUMIN/GLOBULIN RATIO 0.6 (0.8-2.0); ANION GAP 17.1 mmol/L (8-16); CALCIUM 8.3 mg/dL (8.4-10.2); CREATININE, SERUM 1.46 mg/dL (0.57-1.11); POTASSIUM 4.1 mmol/L (3.5-5.1)
[2022-08-17 06:26] LABS: CREATINE KINASE MB 1.4 ng/mL (0-5.0)
[2022-08-17] MEDS: SERTRALINE HCL 50 MG TAB PO SCH (08:07)
[2022-08-17] MEDS: FAMOTIDINE 20 MG TAB PO SCH ×2 (08:07→16:47)
[2022-08-17] MEDS ORDERED: DEXTROSE 50% SYRINGE 50 ML IV PRN (10:15)
[2022-08-17] MEDS: INSULIN REGULAR, HUMAN 100 UNIT/1 ML SQ SCH ×3 (11:30→22:09)
[2022-08-17] MEDS: DOXEPIN HCL 10 MG CAP PO SCH (21:51)
[2022-08-17] MEDS: BIMATOPROST(OPTH) 2.5 ML BOTTLE OP SCH (21:52)
[2022-08-18] VITALS (7 sets, daily range): BP systolic 103–136; BP diastolic 69–92
[2022-08-18 05:30] LABS: BASOPHILS # (AUTO) 0.1 (0.0-0.1); EOSINOPHILS # (AUTO) 0.1 (0.0-0.4); EOSINOPHILS % 0.9 % (0.0-6.0); HEMATOCRIT 45.9 % (34.2-44.1); HEMOGLOBIN 13.9 g/dL (12.0-16.0); LYMPHOCYTES # (AUTO) 1.6 (1.0-3.2); MEAN CORPUSCULAR HGB CONC 30.3 g/dL (31-35); MEAN CORPUSCULAR VOLUME 92.5 fL (81-99); MONOCYTES # (AUTO) 0.9 (0.2-0.8); MONOCYTES % 6.9 % (4.4-11.3); NEUTROPHILS # (AUTO) 10.2 (2.1-6.9); NEUTROPHILS % 78.8 % (38.7-80.0); PLATELET COUNT 248 x10e3/uL (140-360); RED BLOOD COUNT 4.96 x10e6/uL (3.6-5.1); RED CELL DISTRIBUTION WIDTH 14.3 % (11.7-14.4)
[2022-08-18 05:50] LABS: ALBUMIN 2.3 g/dL (3.5-5.0); ALBUMIN/GLOBULIN RATIO 0.7 (0.8-2.0); ANION GAP 16.6 mmol/L (8-16); CREATININE, SERUM 1.27 mg/dL (0.57-1.11); POTASSIUM 3.6 mmol/L (3.5-5.1)
[2022-08-18 06:10] LABS: THYROID STIMULATING HORMONE 0.441 uIU/mL (0.350-4.940)
[2022-08-18] MEDS: INSULIN REGULAR, HUMAN 100 UNIT/1 ML SQ SCH ×4 (07:30→22:47)
[2022-08-18] MEDS: TRESIBA SC SCH (09:00)
[2022-08-18] MEDS: FAMOTIDINE 20 MG TAB PO SCH ×2 (10:05→17:07)
[2022-08-18] MEDS: LACTOBACILLUS ACIDOPHILUS CAPSULE PO SCH (10:08)
[2022-08-18] MEDS: NICOTINE 7 MG PATCH TOP SCH (10:08)
[2022-08-18] MEDS: SERTRALINE HCL 50 MG TAB PO SCH (10:08)
[2022-08-18] MEDS ORDERED: FUROSEMIDE INJ 10 MG/ML 4 ML VIAL IV ONE (13:00)
[2022-08-18] MEDS ORDERED: SODIUM CHLORIDE 0.9% 250ML 250 ML ONE (16:23)
[2022-08-18 18:26] LABS: CLARITY,URINE HAZY (CLEAR); COLOR,URINE YELLOW (YELLOW); KETONES,URINE NEGATIVE (NEGATIVE); LEUKOCYTE ESTERASE ,URINE MODERATE (NEGATIVE); NITRITE,URINE NEGATIVE (NEGATIVE); PROTEIN,URINE DIPSTICK NEGATIVE (NEGATIVE); URINE UROBILINOGEN 0.2 mg/dL (0.2 - 1)
[2022-08-18 18:37] LABS: BACTERIA,URINE MODERATE /HPF; EPITHELIAL CELLS,URINE FEW /LPF
[2022-08-18] MEDS ORDERED: ONDANSETRON HCL 4 MG ORAL DISINTEGRATING TAB PO PRN (20:00)
[2022-08-18] MEDS: BIMATOPROST(OPTH) 2.5 ML BOTTLE OP SCH (21:00)
[2022-08-18] MEDS: DOXEPIN HCL 10 MG CAP PO SCH (21:20)
[2022-08-19] VITALS (8 sets, daily range): BP systolic 104–124; BP diastolic 64–79
[2022-08-19 05:43] LABS: BASOPHILS # (AUTO) 0.1 (0.0-0.1); BASOPHILS % 1.2 % (0.0-1.0); EOSINOPHILS # (AUTO) 0.2 (0.0-0.4); EOSINOPHILS % 1.5 % (0.0-6.0); HEMATOCRIT 46.1 % (34.2-44.1); LYMPHOCYTES # (AUTO) 1.6 (1.0-3.2); MEAN CORPUSCULAR HEMOGLOBIN 28.8 pg (28-32); MEAN CORPUSCULAR HGB CONC 30.4 g/dL (31-35); MEAN CORPUSCULAR VOLUME 94.9 fL (81-99); MONOCYTES # (AUTO) 0.8 (0.2-0.8); MONOCYTES % 7.7 % (4.4-11.3); NEUTROPHILS # (AUTO) 7.9 (2.1-6.9); PLATELET COUNT 212 x10e3/uL (140-360); RED BLOOD COUNT 4.86 x10e6/uL (3.6-5.1); RED CELL DISTRIBUTION WIDTH 14.6 % (11.7-14.4)
[2022-08-19 05:52] LABS: MAGNESIUM 1.9 MG/DL (1.3-2.1); PHOSPHORUS 3.3 MG/DL (2.3-4.7)
[2022-08-19 06:01] LABS: ALBUMIN 2.1 g/dL (3.5-5.0); ALBUMIN/GLOBULIN RATIO 0.6 (0.8-2.0); ANION GAP 14.7 mmol/L (8-16); CALCIUM 8.7 mg/dL (8.4-10.2); CHOL/HDL RATIO 3.7 (3.0-3.6); CREATININE, SERUM 1.39 mg/dL (0.57-1.11); POTASSIUM 3.7 mmol/L (3.5-5.1)
[2022-08-19 06:08] LABS: CREATINE KINASE MB 1.7 ng/mL (0-5.0)
[2022-08-19] MEDS: INSULIN REGULAR, HUMAN 100 UNIT/1 ML SQ SCH ×4 (07:30→21:15)
[2022-08-19] MEDS: TRESIBA SC SCH (09:00)
[2022-08-19] MEDS: FAMOTIDINE 20 MG TAB PO SCH ×2 (09:56→16:26)
[2022-08-19] MEDS: LACTOBACILLUS ACIDOPHILUS CAPSULE PO SCH (09:56)
[2022-08-19] MEDS: SERTRALINE HCL 50 MG TAB PO SCH (09:56)
[2022-08-19] MEDS: NICOTINE 7 MG PATCH TOP SCH (09:57)
[2022-08-19] MEDS: ENOXAPARIN SOD INJ 40 MG/0.4 ML SYR SC SCH ×2 (12:32→16:30)
[2022-08-19 16:10] LABS: BASOPHILS # (AUTO) 0.1 (0.0-0.1); BASOPHILS % 0.8 % (0.0-1.0); EOSINOPHILS # (AUTO) 0.1 (0.0-0.4); EOSINOPHILS % 1.2 % (0.0-6.0); HEMATOCRIT 47.7 % (34.2-44.1); HEMOGLOBIN 13.5 g/dL (12.0-16.0); LYMPHOCYTES # (AUTO) 1.6 (1.0-3.2); LYMPHOCYTES % 14.2 % (18.0-39.1); MEAN CORPUSCULAR HEMOGLOBIN 27.9 pg (28-32); MEAN CORPUSCULAR HGB CONC 28.3 g/dL (31-35); MEAN CORPUSCULAR VOLUME 98.6 fL (81-99); MONOCYTES # (AUTO) 0.6 (0.2-0.8); MONOCYTES % 5.7 % (4.4-11.3); NEUTROPHILS # (AUTO) 8.6 (2.1-6.9); NEUTROPHILS % 77.8 % (38.7-80.0); PLATELET COUNT 234 x10e3/uL (140-360); RED BLOOD COUNT 4.84 x10e6/uL (3.6-5.1); RED CELL DISTRIBUTION WIDTH 14.2 % (11.7-14.4)
[2022-08-19 16:34] LABS: ALBUMIN/GLOBULIN RATIO 0.5 (0.8-2.0); CALCIUM 8.5 mg/dL (8.4-10.2); CREATININE, SERUM 1.55 mg/dL (0.57-1.11)
[2022-08-19] MEDS: BIMATOPROST(OPTH) 2.5 ML BOTTLE OP SCH (21:00)
[2022-08-19] MEDS: DOXEPIN HCL 10 MG CAP PO SCH (21:08)
[2022-08-20] VITALS (7 sets, daily range): BP systolic 98–131; BP diastolic 66–83
[2022-08-20 05:53] LABS: BASOPHILS # (AUTO) 0.1 (0.0-0.1); EOSINOPHILS # (AUTO) 0.2 (0.0-0.4); EOSINOPHILS % 1.7 % (0.0-6.0); HEMATOCRIT 49.1 % (34.2-44.1); HEMOGLOBIN 13.8 g/dL (12.0-16.0); LYMPHOCYTES # (AUTO) 1.4 (1.0-3.2); LYMPHOCYTES % 15.1 % (18.0-39.1); MEAN CORPUSCULAR HEMOGLOBIN 27.8 pg (28-32); MEAN CORPUSCULAR HGB CONC 28.1 g/dL (31-35); MEAN CORPUSCULAR VOLUME 98.8 fL (81-99); MONOCYTES # (AUTO) 0.7 (0.2-0.8); MONOCYTES % 7.7 % (4.4-11.3); NEUTROPHILS # (AUTO) 6.7 (2.1-6.9); NEUTROPHILS % 74.2 % (38.7-80.0); PLATELET COUNT 202 x10e3/uL (140-360); RED BLOOD COUNT 4.97 x10e6/uL (3.6-5.1); RED CELL DISTRIBUTION WIDTH 14.2 % (11.7-14.4)
[2022-08-20 06:33] LABS: ALBUMIN/GLOBULIN RATIO 0.5 (0.8-2.0); ANION GAP 17.1 mmol/L (8-16); CALCIUM 8.6 mg/dL (8.4-10.2); CREATININE, SERUM 1.43 mg/dL (0.57-1.11); POTASSIUM 4.1 mmol/L (3.5-5.1)
[2022-08-20] MEDS: INSULIN REGULAR, HUMAN 100 UNIT/1 ML SQ SCH ×4 (07:30→21:29)
[2022-08-20] MEDS: TRESIBA SC SCH (09:00)
[2022-08-20] MEDS: LACTOBACILLUS ACIDOPHILUS CAPSULE PO SCH (09:33)
[2022-08-20] MEDS: FAMOTIDINE 20 MG TAB PO SCH ×2 (09:33→17:19)
[2022-08-20] MEDS: NICOTINE 7 MG PATCH TOP SCH (09:33)
[2022-08-20] MEDS: SERTRALINE HCL 50 MG TAB PO SCH (09:33)
[2022-08-20] MEDS: METOPROLOL SUCCINATE 25 MG TAB XL PO SCH (17:20)
[2022-08-20] MEDS: ENOXAPARIN SOD INJ 40 MG/0.4 ML SYR SC SCH (17:23)
[2022-08-20] MEDS: BIMATOPROST(OPTH) 2.5 ML BOTTLE OP SCH (21:24)
[2022-08-20] MEDS: DOXEPIN HCL 10 MG CAP PO SCH (21:24)
[2022-08-21] VITALS (8 sets, daily range): BP systolic 101–133; BP diastolic 65–82
[2022-08-21] MEDS: INSULIN REGULAR, HUMAN 100 UNIT/1 ML SQ SCH ×4 (07:30→21:51)
[2022-08-21] MEDS: TRESIBA SC SCH (09:00)
[2022-08-21] MEDS: FAMOTIDINE 20 MG TAB PO SCH ×2 (09:44→18:13)
[2022-08-21] MEDS: LACTOBACILLUS ACIDOPHILUS CAPSULE PO SCH (09:45)
[2022-08-21] MEDS: METOPROLOL SUCCINATE 25 MG TAB XL PO SCH ×2 (09:45→18:13)
[2022-08-21] MEDS: SERTRALINE HCL 50 MG TAB PO SCH (09:45)
[2022-08-21] MEDS: NICOTINE 7 MG PATCH TOP SCH (09:45)
[2022-08-21 16:37] LABS: INR 1.02; PROTHROMBIN TIME 13.6 seconds (11.9-14.5)
[2022-08-21] MEDS: FUROSEMIDE 40 MG TAB PO SCH (18:17)
[2022-08-21] MEDS: BIMATOPROST(OPTH) 2.5 ML BOTTLE OP SCH (21:00)
[2022-08-21] MEDS: DOXEPIN HCL 10 MG CAP PO SCH (21:42)
[2022-08-22 00:19] VITALS: BP 113/70
[2022-08-22 04:00] VITALS: BP 110/74
[2022-08-22] MEDS: FUROSEMIDE 40 MG TAB PO SCH ×2 (05:25→16:46)
[2022-08-22 05:36] LABS: BASOPHILS # (AUTO) 0.1 (0.0-0.1); BASOPHILS % 0.9 % (0.0-1.0); EOSINOPHILS # (AUTO) 0.1 (0.0-0.4); EOSINOPHILS % 1.2 % (0.0-6.0); HEMATOCRIT 47.9 % (34.2-44.1); HEMOGLOBIN 13.7 g/dL (12.0-16.0); LYMPHOCYTES # (AUTO) 1.7 (1.0-3.2); LYMPHOCYTES % 16.1 % (18.0-39.1); MEAN CORPUSCULAR HEMOGLOBIN 27.6 pg (28-32); MEAN CORPUSCULAR HGB CONC 28.6 g/dL (31-35); MEAN CORPUSCULAR VOLUME 96.4 fL (81-99); MONOCYTES # (AUTO) 0.6 (0.2-0.8); MONOCYTES % 5.7 % (4.4-11.3); NEUTROPHILS % 75.9 % (38.7-80.0); PLATELET COUNT 248 x10e3/uL (140-360); RED BLOOD COUNT 4.97 x10e6/uL (3.6-5.1); RED CELL DISTRIBUTION WIDTH 14.2 % (11.7-14.4)
[2022-08-22 06:16] LABS: ANION GAP 13.7 mmol/L (8-16); CALCIUM 8.6 mg/dL (8.4-10.2); CREATININE, SERUM 1.26 mg/dL (0.57-1.11); POTASSIUM 3.7 mmol/L (3.5-5.1)
[2022-08-22 08:00] VITALS: BP 130/85
[2022-08-22 08:34] VITALS: BP 130/85
[2022-08-22] MEDS: TRESIBA SC SCH (09:00)
[2022-08-22] MEDS: SERTRALINE HCL 50 MG TAB PO SCH (10:14)
[2022-08-22] MEDS: LACTOBACILLUS ACIDOPHILUS CAPSULE PO SCH (10:14)
[2022-08-22] MEDS: METOPROLOL SUCCINATE 25 MG TAB XL PO SCH ×2 (10:14→16:46)
[2022-08-22] MEDS: NICOTINE 7 MG PATCH TOP SCH (10:15)
[2022-08-22] MEDS: FAMOTIDINE 20 MG TAB PO SCH ×2 (10:15→16:46)
[2022-08-22] MEDS: INSULIN REGULAR, HUMAN 100 UNIT/1 ML SQ SCH ×3 (10:27→16:53)
[2022-08-22 12:05] VITALS: BP_SYST 104
[2022-08-22 16:09] VITALS: BP 100/63
== END 2022-08-22 18:30 | DRG 871 ==
LOC: ER 13:50 → ERHOLD 14:16 → ICU 16:07 → MED/SURG 08-16 12:30 → MED/SURG3 08-18 13:53
PROVIDERS: ADMIT Internal Medicine; ATTEND Internal Medicine
PROC: 0W9930Z Drainage of Right Pleural Cavity with Drainage Device, Percutaneous Approach (ICD-10-PCS; principal; 2022-08-15)
PROC: 3E03329 Introduction of Other Anti-infective into Peripheral Vein, Percutaneous Approach (ICD-10-PCS; 2022-08-15)
PROC: 3E03329 Introduction of Other Anti-infective into Peripheral Vein, Percutaneous Approach (ICD-10-PCS; 2022-08-16)
PROC: 3E03329 Introduction of Other Anti-infective into Peripheral Vein, Percutaneous Approach (ICD-10-PCS; 2022-08-17)
PROC: 3E03329 Introduction of Other Anti-infective into Peripheral Vein, Percutaneous Approach (ICD-10-PCS; 2022-08-18)
PROC: 3E03329 Introduction of Other Anti-infective into Peripheral Vein, Percutaneous Approach (ICD-10-PCS; 2022-08-19)
PROC: 3E03329 Introduction of Other Anti-infective into Peripheral Vein, Percutaneous Approach (ICD-10-PCS; 2022-08-20)
PROC: 3E03329 Introduction of Other Anti-infective into Peripheral Vein, Percutaneous Approach (ICD-10-PCS; 2022-08-21)
PROC: 3E03329 Introduction of Other Anti-infective into Peripheral Vein, Percutaneous Approach (ICD-10-PCS; 2022-08-22)
DX: A41.9 Sepsis, unspecified organism (principal); J69.0 Pneumonitis due to inhalation of food and vomit; J96.90 Respiratory failure, unspecified, unspecified whether with hypoxia or hypercapnia; N39.0 Urinary tract infection, site not specified; J90 Pleural effusion, not elsewhere classified; N17.9 Acute kidney failure, unspecified; I47.20 Ventricular tachycardia, unspecified; I50.30 Unspecified diastolic (congestive) heart failure; N10 Acute pyelonephritis; R65.20 Severe sepsis without septic shock; R53.81 Other malaise; R62.7 Adult failure to thrive; J44.9 Chronic obstructive pulmonary disease, unspecified; I49.1 Atrial premature depolarization; F32.A Depression, unspecified; F41.9 Anxiety disorder, unspecified; E78.5 Hyperlipidemia, unspecified; E11.22 Type 2 diabetes mellitus with diabetic chronic kidney disease; E11.65 Type 2 diabetes mellitus with hyperglycemia; N13.9 Obstructive and reflux uropathy, unspecified; N18.9 Chronic kidney disease, unspecified; E66.9 Obesity, unspecified; I12.9 Hypertensive chronic kidney disease with stage 1 through stage 4 chronic kidney disease, or unspecified chronic kidney disease; I08.3 Combined rheumatic disorders of mitral, aortic and tricuspid valves; R13.10 Dysphagia, unspecified; H91.90 Unspecified hearing loss, unspecified ear; Z79.4 Long term (current) use of insulin; Z79.2 Long term (current) use of antibiotics; Z79.899 Other long term (current) drug therapy; Z99.81 Dependence on supplemental oxygen; Z87.01 Personal history of pneumonia (recurrent); Z87.440 Personal history of urinary (tract) infections; Z90.49 Acquired absence of other specified parts of digestive tract; Z98.51 Tubal ligation status; Z98.49 Cataract extraction status, unspecified eye; Z68.36 Body mass index [BMI] 36.0-36.9, adult; Z82.49 Family history of ischemic heart disease and other diseases of the circulatory system; Z87.891 Personal history of nicotine dependence; Z86.16 Personal history of COVID-19
CPT/HCPCS: 0223U; 32555; 36415; 71045; 71250; 74176; 74230; 74470; 80048; 80053; 80061; 81001; 82550; 82553; 82948; 83605; 83615; 83735; 83880; 84100; 84157; 84443; 84484; 85025; 85610; 85730; 87040; 87070; 87205; 88112; 88300; 88305; 89051; 93005; 93041; 93306; 94799; 96360; 96372; 99252; 99284; J1650; J1817; J1940; J2001; J2543; J7030; J7050

== ENCOUNTER 2022-08-27 16:27 | Inpatient (IN) | payer MEDICARE, OTHER ==
[~2022-08-27] VITALS: Ht 175.3 cm; Wt 110.2 kg
[~2022-08-27 16:27] MED LIST changes: +ACIDOPHILUS1 EAC1 PO; +HUMULIN R100 UNIT/2 INJ; +LUMIGAN2.5 M1 OP; +NICOTINE PATCH1 EACH TOP; +TRESIBA FL100 UNIT/1 SQ
[2022-08-27 17:26] LABS: BASOPHILS # (AUTO) 0.1 (0.0-0.1); BASOPHILS % 0.8 % (0.0-1.0); EOSINOPHILS # (AUTO) 0.3 (0.0-0.4); EOSINOPHILS % 2.5 % (0.0-6.0); HEMATOCRIT 44.1 % (34.2-44.1); HEMOGLOBIN 12.9 g/dL (12.0-16.0); LYMPHOCYTES # (AUTO) 1.6 (1.0-3.2); LYMPHOCYTES % 15.9 % (18.0-39.1); MEAN CORPUSCULAR HGB CONC 29.3 g/dL (31-35); MEAN CORPUSCULAR VOLUME 95.9 fL (81-99); MONOCYTES # (AUTO) 0.8 (0.2-0.8); MONOCYTES % 8.1 % (4.4-11.3); NEUTROPHILS # (AUTO) 7.1 (2.1-6.9); PLATELET COUNT 266 x10e3/uL (140-360); RED CELL DISTRIBUTION WIDTH 14.4 % (11.7-14.4)
[2022-08-27 17:39] LABS: INR 1.03; PROTHROMBIN TIME 13.7 seconds (11.9-14.5)
[2022-08-27 17:40] LABS: PARTIAL THROMBOPLASTIN TIME 26.8 seconds (23.8-35.5)
[2022-08-27 17:46] LABS: ALBUMIN 2.2 g/dL (3.5-5.0); ALBUMIN/GLOBULIN RATIO 0.6 (0.8-2.0); ANION GAP 15.6 mmol/L (8-16); CALCIUM 8.4 mg/dL (8.4-10.2); CREATININE, SERUM 1.12 mg/dL (0.57-1.11); POTASSIUM 3.6 mmol/L (3.5-5.1)
[2022-08-27 17:52] LABS: CREATINE KINASE MB 2.2 ng/mL (0-5.0)
[2022-08-27] MEDS ORDERED: ONDANSETRON HCL INJ 2MG/ML 2ML 2 MG/ML VIAL IV PRN (18:30)
[2022-08-27] MEDS ORDERED: SODIUM CHLORIDE FLUSH 10 ML SYR INJ PRN (18:30)
[2022-08-27] MEDS ORDERED: Morphine 2mg Syringe 2 MG/ML SYR IV PRN (18:30)
[2022-08-27] MEDS ORDERED: CEFTRIAXONE 1 GM VIAL IM ONE (18:30)
[2022-08-27] MEDS ORDERED: Vancomycin IV 1 GM in SODIUM CHLORIDE 0.9% 250ML 250 ML IV ONE (18:30)
[2022-08-27 21:10] VITALS: BP 116/76
[2022-08-27 21:20] VITALS: BP 116/76
[2022-08-27 22:12] VITALS: BP_SYST 116; BP_SYST 139; BP_DIAS 114; BP_DIAS 76
[2022-08-27] MEDS: ALBUTEROL/IPRATROPIUM 3 ML NEB NEB SCH (22:50)
[2022-08-27] MEDS ORDERED: FUROSEMIDE INJ 10 MG/ML 4 ML VIAL IV ONE (23:00)
[2022-08-27] MEDS ORDERED: Vancomycin IV 1 GM VIAL ONE (23:26)
[2022-08-27] MEDS ORDERED: SODIUM CHLORIDE 0.9% 250ML 500 ML ONE (23:27)
[2022-08-27] MEDS ORDERED: SODIUM CHLORIDE 0.9% 250ML 250 ML ONE (23:35)
[2022-08-28] VITALS (8 sets, daily range): BP systolic 100–129; BP diastolic 60–95
[2022-08-28] MEDS: ALBUTEROL/IPRATROPIUM 3 ML NEB NEB SCH ×6 (03:00→23:20)
[2022-08-28 03:05] LABS: CREATINE KINASE MB 1.9 ng/mL (0-5.0)
[2022-08-28 05:52] LABS: BASOPHILS # (AUTO) 0.1 (0.0-0.1); BASOPHILS % 1.5 % (0.0-1.0); EOSINOPHILS # (AUTO) 0.3 (0.0-0.4); HEMATOCRIT 42.4 % (34.2-44.1); LYMPHOCYTES # (AUTO) 1.4 (1.0-3.2); LYMPHOCYTES % 15.1 % (18.0-39.1); MEAN CORPUSCULAR HGB CONC 30.7 g/dL (31-35); MEAN CORPUSCULAR VOLUME 91.2 fL (81-99); MONOCYTES # (AUTO) 0.6 (0.2-0.8); MONOCYTES % 6.7 % (4.4-11.3); NEUTROPHILS % 73.2 % (38.7-80.0); PLATELET COUNT 266 x10e3/uL (140-360); RED BLOOD COUNT 4.65 x10e6/uL (3.6-5.1); RED CELL DISTRIBUTION WIDTH 14.5 % (11.7-14.4)
[2022-08-28 06:14] LABS: ALBUMIN 2.1 g/dL (3.5-5.0); ALBUMIN/GLOBULIN RATIO 0.6 (0.8-2.0); ANION GAP 17.6 mmol/L (8-16); CALCIUM 8.5 mg/dL (8.4-10.2); CREATININE, SERUM 1.09 mg/dL (0.57-1.11); POTASSIUM 3.6 mmol/L (3.5-5.1)
[2022-08-28 16:21] LABS: CREATINE KINASE MB 2.4 ng/mL (0-5.0)
[2022-08-29] VITALS (8 sets, daily range): BP systolic 93–117; BP diastolic 63–99
[2022-08-29] MEDS: ALBUTEROL/IPRATROPIUM 3 ML NEB NEB SCH ×6 (03:20→23:00)
[2022-08-29] MEDS ORDERED: ACETAMINOPHEN 325 MG TAB PO PRN (14:15)
[2022-08-29] MEDS ORDERED: DEXTROSE 50% SYRINGE 50 ML IV PRN (14:30)
[2022-08-29] MEDS: INSULIN REGULAR, HUMAN 100 UNIT/1 ML SQ SCH ×2 (16:29→21:00)
[2022-08-29] MEDS ORDERED: INSULIN REGULAR, HUMAN 100 UNIT/1 ML SQ SCH (16:30)
[2022-08-29] MEDS: FUROSEMIDE INJ 10 MG/ML 2 ML VIAL IV SCH (16:36)
[2022-08-29] MEDS: FAMOTIDINE 20 MG TAB PO SCH (16:36)
[2022-08-29] MEDS: ENOXAPARIN 30 MG/0.3 ML SYR SC SCH (16:36)
[2022-08-29] MEDS: CARVEDILOL 3.125 MG TAB PO SCH (16:36)
[2022-08-29] MEDS: ASCORBIC ACID 500 MG TAB PO SCH (16:36)
[2022-08-29] MEDS ORDERED: ONDANSETRON HCL 4 MG ORAL DISINTEGRATING TAB PO PRN (18:45)
[2022-08-29] MEDS ORDERED: BIMATOPROST(OPTH) 2.5 ML BOTTLE OP SCH (21:00)
[2022-08-29] MEDS: BIMATOPROST(OPTH) 2.5 ML BOTTLE OP SCH (21:40)
[2022-08-29] MEDS: DOXEPIN HCL 10 MG CAP PO SCH (21:40)
[2022-08-30] VITALS (7 sets, daily range): BP systolic 102–133; BP diastolic 53–96
[2022-08-30] MEDS: FUROSEMIDE INJ 10 MG/ML 2 ML VIAL IV SCH ×2 (05:33→17:05)
[2022-08-30] MEDS: ALBUTEROL/IPRATROPIUM 3 ML NEB NEB SCH ×5 (07:00→23:00)
[2022-08-30 07:09] LABS: BASOPHILS # (AUTO) 0.1 (0.0-0.1); BASOPHILS % 1.6 % (0.0-1.0); EOSINOPHILS # (AUTO) 0.3 (0.0-0.4); EOSINOPHILS % 3.1 % (0.0-6.0); HEMATOCRIT 44.9 % (34.2-44.1); HEMOGLOBIN 13.7 g/dL (12.0-16.0); LYMPHOCYTES # (AUTO) 1.8 (1.0-3.2); LYMPHOCYTES % 21.7 % (18.0-39.1); MEAN CORPUSCULAR HGB CONC 30.5 g/dL (31-35); MEAN CORPUSCULAR VOLUME 91.6 fL (81-99); MONOCYTES # (AUTO) 0.5 (0.2-0.8); MONOCYTES % 6.1 % (4.4-11.3); NEUTROPHILS # (AUTO) 5.6 (2.1-6.9); NEUTROPHILS % 67.1 % (38.7-80.0); PLATELET COUNT 245 x10e3/uL (140-360); RED CELL DISTRIBUTION WIDTH 14.5 % (11.7-14.4)
[2022-08-30] MEDS: INSULIN REGULAR, HUMAN 100 UNIT/1 ML SQ SCH ×4 (07:30→21:00)
[2022-08-30 07:39] LABS: ALBUMIN 2.4 g/dL (3.5-5.0); CALCIUM 8.9 mg/dL (8.4-10.2); CREATININE, SERUM 1.19 mg/dL (0.57-1.11)
[2022-08-30 07:40] LABS: ALBUMIN/GLOBULIN RATIO 0.6 (0.8-2.0); CHOL/HDL RATIO 4.1 (3.0-3.6)
[2022-08-30 07:53] LABS: PHOSPHORUS 3.3 MG/DL (2.3-4.7)
[2022-08-30] MEDS: LOSARTAN POTASSIUM 25 MG TAB PO SCH (08:34)
[2022-08-30] MEDS: NICOTINE 7 MG PATCH TOP SCH (08:39)
[2022-08-30] MEDS: SERTRALINE HCL 50 MG TAB PO SCH (08:39)
[2022-08-30] MEDS: CARVEDILOL 3.125 MG TAB PO SCH ×2 (08:40→17:06)
[2022-08-30] MEDS: ASCORBIC ACID 500 MG TAB PO SCH ×2 (08:40→17:05)
[2022-08-30] MEDS: ASPIRIN 81 MG ENTERIC COATED PO SCH (08:40)
[2022-08-30] MEDS: LACTOBACILLUS ACIDOPHILUS CAPSULE PO SCH (08:40)
[2022-08-30] MEDS: FAMOTIDINE 20 MG TAB PO SCH ×2 (08:40→17:05)
[2022-08-30] MEDS: HYDROCHLOROTHIAZIDE 25 MG TAB PO SCH (08:40)
[2022-08-30] MEDS: NYSTATIN 15 GM POWDER UD BTL TOP SCH (16:35)
[2022-08-30] MEDS: ENOXAPARIN 30 MG/0.3 ML SYR SC SCH (17:06)
[2022-08-30] MEDS: DOXEPIN HCL 10 MG CAP PO SCH (20:24)
[2022-08-30] MEDS: BIMATOPROST(OPTH) 2.5 ML BOTTLE OP SCH (20:24)
[2022-08-30] MEDS: ATORVASTATIN 20 MG TAB PO SCH (20:24)
[2022-08-30] MEDS: SPIRONOLACTONE 25 MG TAB PO SCH (22:58)
[2022-08-31] VITALS (8 sets, daily range): BP systolic 95–137; BP diastolic 61–96
[2022-08-31] MEDS: FUROSEMIDE INJ 10 MG/ML 4 ML VIAL IV SCH ×2 (05:35→17:59)
[2022-08-31] MEDS: ALBUTEROL/IPRATROPIUM 3 ML NEB NEB SCH ×5 (07:00→23:00)
[2022-08-31] MEDS: INSULIN REGULAR, HUMAN 100 UNIT/1 ML SQ SCH ×4 (07:30→19:44)
[2022-08-31] MEDS: LACTOBACILLUS ACIDOPHILUS CAPSULE PO SCH (08:54)
[2022-08-31] MEDS: NICOTINE 7 MG PATCH TOP SCH (08:54)
[2022-08-31] MEDS: SERTRALINE HCL 50 MG TAB PO SCH (08:54)
[2022-08-31] MEDS: SPIRONOLACTONE 25 MG TAB PO SCH (08:54)
[2022-08-31] MEDS: FAMOTIDINE 20 MG TAB PO SCH ×2 (08:54→17:59)
[2022-08-31] MEDS: ASPIRIN 81 MG ENTERIC COATED PO SCH (08:54)
[2022-08-31] MEDS: ASCORBIC ACID 500 MG TAB PO SCH ×2 (08:55→17:59)
[2022-08-31] MEDS: HYDROCHLOROTHIAZIDE 25 MG TAB PO SCH (08:55)
[2022-08-31] MEDS: CARVEDILOL 3.125 MG TAB PO SCH ×2 (08:55→18:00)
[2022-08-31] MEDS: LOSARTAN POTASSIUM 25 MG TAB PO SCH (08:55)
[2022-08-31] MEDS: NYSTATIN 15 GM POWDER UD BTL TOP SCH (12:05)
[2022-08-31] MEDS: ENOXAPARIN 30 MG/0.3 ML SYR SC SCH (17:59)
[2022-08-31] MEDS: DOXEPIN HCL 10 MG CAP PO SCH (19:39)
[2022-08-31] MEDS: ATORVASTATIN 20 MG TAB PO SCH (19:39)
[2022-08-31] MEDS: BIMATOPROST(OPTH) 2.5 ML BOTTLE OP SCH (19:44)
[2022-09-01 01:21] VITALS: BP 119/72
[2022-09-01 01:22] VITALS: BP 119/72
[2022-09-01] MEDS: ALBUTEROL/IPRATROPIUM 3 ML NEB NEB SCH ×4 (03:00→16:10)
[2022-09-01] MEDS: FUROSEMIDE INJ 10 MG/ML 4 ML VIAL IV SCH (05:28)
[2022-09-01 05:36] LABS: ALBUMIN 2.4 g/dL (3.5-5.0); ALBUMIN/GLOBULIN RATIO 0.6 (0.8-2.0); ANION GAP 16.8 mmol/L (8-16); CALCIUM 8.9 mg/dL (8.4-10.2); CREATININE, SERUM 1.36 mg/dL (0.57-1.11); POTASSIUM 3.8 mmol/L (3.5-5.1)
[2022-09-01] MEDS: INSULIN REGULAR, HUMAN 100 UNIT/1 ML SQ SCH ×3 (07:30→16:51)
[2022-09-01 07:59] VITALS: BP 111/69
[2022-09-01] MEDS: FAMOTIDINE 20 MG TAB PO SCH (08:36)
[2022-09-01] MEDS: ASPIRIN 81 MG ENTERIC COATED PO SCH (08:36)
[2022-09-01] MEDS: CARVEDILOL 3.125 MG TAB PO SCH (08:37)
[2022-09-01] MEDS: NICOTINE 7 MG PATCH TOP SCH (08:38)
[2022-09-01] MEDS: HYDROCHLOROTHIAZIDE 25 MG TAB PO SCH (08:38)
[2022-09-01] MEDS: ASCORBIC ACID 500 MG TAB PO SCH ×2 (08:38→16:49)
[2022-09-01] MEDS: SERTRALINE HCL 50 MG TAB PO SCH (08:38)
[2022-09-01] MEDS: LACTOBACILLUS ACIDOPHILUS CAPSULE PO SCH (08:38)
[2022-09-01 08:46] VITALS: BP 111/69
[2022-09-01] MEDS: NYSTATIN 15 GM POWDER UD BTL TOP SCH (09:00)
[2022-09-01] MEDS ORDERED: LOSARTAN POTASSIUM 25 MG TAB PO SCH (09:00)
[2022-09-01 11:56] VITALS: BP 107/70
[2022-09-01] MEDS ORDERED: FUROSEMIDE40 MG PO ×2 (12:06→12:51)
[2022-09-01] MEDS ORDERED: COREG12.5 MG PO (12:06)
[2022-09-01] MEDS ORDERED: LIPITOR20 MG PO (12:06)
[2022-09-01] MEDS ORDERED: ONDANSETRON ODT4 MG PO (12:06)
[2022-09-01] MEDS ORDERED: ASPIRIN EC81 MG PO (12:06)
[2022-09-01] MEDS ORDERED: Albuterol/Ipratropium Nebulize NEB (12:06)
[2022-09-01 16:24] VITALS: BP 107/74
[2022-09-01] MEDS: ENOXAPARIN 30 MG/0.3 ML SYR SC SCH (16:49)
[2022-09-01] MEDS ORDERED: CARVEDILOL 12.5 MG TAB PO SCH (21:00)
[2022-09-02] MEDS ORDERED: FUROSEMIDE 40 MG TAB PO SCH (09:00)
== END 2022-09-01 17:11 | disposition home or self-care (01) | DRG 177 ==
LOC: ER 16:34 → ERHOLD 18:32 → MED/SURG 20:43
PROVIDERS: ADMIT Internal Medicine; ATTEND Internal Medicine
PROC: 0W993ZZ Drainage of Right Pleural Cavity, Percutaneous Approach (ICD-10-PCS; principal; 2022-08-28)
DX: J69.0 Pneumonitis due to inhalation of food and vomit (principal); I50.43 Acute on chronic combined systolic (congestive) and diastolic (congestive) heart failure; J90 Pleural effusion, not elsewhere classified; E87.0 Hyperosmolality and hypernatremia; I13.0 Hypertensive heart and chronic kidney disease with heart failure and stage 1 through stage 4 chronic kidney disease, or unspecified chronic kidney disease; R13.10 Dysphagia, unspecified; R62.7 Adult failure to thrive; E11.65 Type 2 diabetes mellitus with hyperglycemia; I08.3 Combined rheumatic disorders of mitral, aortic and tricuspid valves; E11.22 Type 2 diabetes mellitus with diabetic chronic kidney disease; R91.1 Solitary pulmonary nodule; N18.9 Chronic kidney disease, unspecified; E66.01 Morbid (severe) obesity due to excess calories; J44.9 Chronic obstructive pulmonary disease, unspecified; E04.1 Nontoxic single thyroid nodule; F32.A Depression, unspecified; L89.152 Pressure ulcer of sacral region, stage 2; R53.81 Other malaise; F41.9 Anxiety disorder, unspecified; F17.210 Nicotine dependence, cigarettes, uncomplicated; E78.5 Hyperlipidemia, unspecified; Z79.4 Long term (current) use of insulin; Z99.81 Dependence on supplemental oxygen; Z68.35 Body mass index [BMI] 35.0-35.9, adult; Z90.49 Acquired absence of other specified parts of digestive tract; Z98.51 Tubal ligation status; Z98.49 Cataract extraction status, unspecified eye; Z98.890 Other specified postprocedural states; Z66 Do not resuscitate; Z82.49 Family history of ischemic heart disease and other diseases of the circulatory system; Z79.899 Other long term (current) drug therapy; Z87.440 Personal history of urinary (tract) infections; Z79.82 Long term (current) use of aspirin
CPT/HCPCS: 32555; 36415; 71045; 74470; 80053; 80061; 82550; 82553; 82948; 83735; 83880; 84100; 84484; 85025; 85610; 85730; 86304; 93005; 93306; 94640; 94799; 96372; 99252; 99284; J0456; J0696; J1650; J1817; J1940; J3370; J7050

== ENCOUNTER 2022-09-06 02:16 | Inpatient (IN) | payer MEDICARE, OTHER ==
[2022-09-06] VITALS (17 sets, daily range): BP systolic 85–142; BP diastolic 47–113
[~2022-09-06] VITALS: Ht 175.3 cm; Wt 110.2 kg
[~2022-09-06 02:16] MED LIST changes: +ASPIRIN EC81 MG PO; +Albuterol/Ipratropium Nebulize NEB; +COREG12.5 MG PO; +FUROSEMIDE40 MG PO; +LIPITOR20 MG PO
[2022-09-06] MEDS ORDERED: DEXTROSE 5%/0.45% SOD CHL 1,000 ML IV ONE (02:30)
[2022-09-06 03:04] LABS: BASOPHILS # (AUTO) 0.1 (0.0-0.1); BASOPHILS % 0.7 % (0.0-1.0); EOSINOPHILS # (AUTO) 0.2 (0.0-0.4); EOSINOPHILS % 1.3 % (0.0-6.0); HEMOGLOBIN 12.2 g/dL (12.0-16.0); LYMPHOCYTES # (AUTO) 1.4 (1.0-3.2); LYMPHOCYTES % 12.8 % (18.0-39.1); MEAN CORPUSCULAR VOLUME 96.3 fL (81-99); MONOCYTES # (AUTO) 0.6 (0.2-0.8); MONOCYTES % 5.6 % (4.4-11.3); NEUTROPHILS # (AUTO) 8.9 (2.1-6.9); NEUTROPHILS % 79.3 % (38.7-80.0); PLATELET COUNT 198 x10e3/uL (140-360); RED BLOOD COUNT 4.36 x10e6/uL (3.6-5.1); RED CELL DISTRIBUTION WIDTH 14.3 % (11.7-14.4)
[2022-09-06] MEDS ORDERED: DEXTROSE 50% SYRINGE 50 ML IV STA (03:08)
[2022-09-06 03:23] LABS: ALBUMIN 2.6 g/dL (3.5-5.0); ALBUMIN/GLOBULIN RATIO 0.7 (0.8-2.0); ANION GAP 14.1 mmol/L (8-16); CALCIUM 8.7 mg/dL (8.4-10.2); CREATININE, SERUM 1.23 mg/dL (0.57-1.11); POTASSIUM 4.1 mmol/L (3.5-5.1)
[2022-09-06] MEDS ORDERED: DEXTROSE 50% SYRINGE 50 ML IV ONE (03:23)
[2022-09-06 03:28] LABS: CLARITY,URINE SL CLOUDY (CLEAR); COLOR,URINE YELLOW (YELLOW); KETONES,URINE NEGATIVE (NEGATIVE); LEUKOCYTE ESTERASE ,URINE MODERATE (NEGATIVE); NITRITE,URINE NEGATIVE (NEGATIVE); PROTEIN,URINE DIPSTICK 1+ (NEGATIVE); URINE UROBILINOGEN 0.2 mg/dL (0.2 - 1)
[2022-09-06 03:30] LABS: CREATINE KINASE MB 2.5 ng/mL (0-5.0)
[2022-09-06 03:33] LABS: BACTERIA,URINE FEW /HPF; EPITHELIAL CELLS,URINE FEW /LPF; RBC,URINE 0-5 /HPF (0-5); WBC,URINE (MAN) 21-50 /HPF (0-5)
[2022-09-06] MEDS ORDERED: ONDANSETRON HCL INJ 2MG/ML 2ML 2 MG/ML VIAL IV PRN (03:45)
[2022-09-06] MEDS ORDERED: DEXTROSE 50% SYRINGE 50 ML IV PRN ×2 (04:30→22:30)
[2022-09-06] MEDS ORDERED: FUROSEMIDE INJ 10 MG/ML 2 ML VIAL IV SCH ×3 (06:00→18:00)
[2022-09-06] MEDS ORDERED: ACETAMINOPHEN 325 MG TAB PO PRN (10:00)
[2022-09-06] MEDS ORDERED: METOPROLOL TARTRATE INJ 1 MG/ML VIAL IV PRN (10:00)
[2022-09-06] MEDS ORDERED: POLYETHYLENE GLYCOL 3350 17 GM PACK PO PRN (10:00)
[2022-09-06] MEDS: ALBUTEROL/IPRATROPIUM 3 ML NEB INH SCH ×4 (10:15→23:00)
[2022-09-06 11:39] LABS: CREATINE KINASE MB 2.2 ng/mL (0-5.0)
[2022-09-06] MEDS: NICOTINE 7 MG PATCH TOP SCH (12:54)
[2022-09-06] MEDS ORDERED: METOLAZONE 5 MG TAB PO ONE (13:00)
[2022-09-06] MEDS: SPIRONOLACTONE 25 MG TAB PO SCH (13:56)
[2022-09-06] MEDS ORDERED: PIOGLITAZONE HCL 15 MG TAB PO SCH (14:00)
[2022-09-06] MEDS: SITAGLIPTIN 100 MG TAB PO SCH (14:41)
[2022-09-06] MEDS ORDERED: INSULIN REGULAR, HUMAN 100 UNIT/1 ML SQ SCH (16:30)
[2022-09-06] MEDS ORDERED: SPIRONOLACTONE 25 MG TAB PO SCH (17:00)
[2022-09-06] MEDS: DOCUSATE SODIUM 100 MG CAP PO SCH (17:00)
[2022-09-06] MEDS: FAMOTIDINE 20 MG TAB PO SCH (17:57)
[2022-09-06] MEDS: FUROSEMIDE INJ 10 MG/ML 2 ML VIAL IV SCH (18:12)
[2022-09-06] MEDS: ATORVASTATIN 20 MG TAB PO SCH (20:23)
[2022-09-06] MEDS: DOXEPIN HCL 10 MG CAP PO SCH (20:23)
[2022-09-06] MEDS: CARVEDILOL 12.5 MG TAB PO SCH (20:25)
[2022-09-06] MEDS ORDERED: CARVEDILOL 12.5 MG TAB PO SCH (21:00)
[2022-09-06] MEDS ORDERED: LORAZEPAM 1 MG TAB PO PRN (22:30)
[2022-09-07] VITALS (8 sets, daily range): BP systolic 100–142; BP diastolic 54–80
[2022-09-07] MEDS: ALBUTEROL/IPRATROPIUM 3 ML NEB INH SCH ×6 (02:10→22:50)
[2022-09-07] MEDS ORDERED: LORAZEPAM 1 MG TAB PO PRN (04:15)
[2022-09-07] MEDS: FUROSEMIDE INJ 10 MG/ML 2 ML VIAL IV SCH ×2 (05:50→16:44)
[2022-09-07 06:40] LABS: BASOPHILS # (AUTO) 0.1 (0.0-0.1); BASOPHILS % 0.8 % (0.0-1.0); EOSINOPHILS # (AUTO) 0.1 (0.0-0.4); EOSINOPHILS % 0.5 % (0.0-6.0); HEMATOCRIT 41.9 % (34.2-44.1); HEMOGLOBIN 12.3 g/dL (12.0-16.0); MEAN CORPUSCULAR HEMOGLOBIN 27.5 pg (28-32); MEAN CORPUSCULAR HGB CONC 29.4 g/dL (31-35); MEAN CORPUSCULAR VOLUME 93.5 fL (81-99); MONOCYTES # (AUTO) 0.8 (0.2-0.8); MONOCYTES % 8.8 % (4.4-11.3); NEUTROPHILS # (AUTO) 6.6 (2.1-6.9); NEUTROPHILS % 68.6 % (38.7-80.0); PLATELET COUNT 216 x10e3/uL (140-360); RED BLOOD COUNT 4.48 x10e6/uL (3.6-5.1); RED CELL DISTRIBUTION WIDTH 14.5 % (11.7-14.4)
[2022-09-07 06:59] LABS: CREATINE KINASE MB 1.6 ng/mL (0-5.0)
[2022-09-07 07:00] LABS: ALBUMIN 2.4 g/dL (3.5-5.0); ALBUMIN/GLOBULIN RATIO 0.6 (0.8-2.0); ANION GAP 14.7 mmol/L (8-16); CALCIUM 8.9 mg/dL (8.4-10.2); CREATININE, SERUM 1.6 mg/dL (0.57-1.11); POTASSIUM 3.7 mmol/L (3.5-5.1)
[2022-09-07 07:01] LABS: MAGNESIUM 1.9 MG/DL (1.3-2.1)
[2022-09-07] MEDS ORDERED: INSULIN REGULAR, HUMAN 100 UNIT/1 ML SQ SCH (07:30)
[2022-09-07] MEDS: SITAGLIPTIN 100 MG TAB PO SCH (09:46)
[2022-09-07] MEDS: DOCUSATE SODIUM 100 MG CAP PO SCH ×2 (09:46→16:43)
[2022-09-07] MEDS: SPIRONOLACTONE 25 MG TAB PO SCH (09:47)
[2022-09-07] MEDS: LOSARTAN POTASSIUM 25 MG TAB PO SCH (09:47)
[2022-09-07] MEDS: NICOTINE 7 MG PATCH TOP SCH (09:47)
[2022-09-07] MEDS: SERTRALINE HCL 50 MG TAB PO SCH (09:47)
[2022-09-07] MEDS: HYDROCHLOROTHIAZIDE 25 MG TAB PO SCH (09:47)
[2022-09-07] MEDS: ASPIRIN 81 MG ENTERIC COATED PO SCH (09:47)
[2022-09-07] MEDS: LACTOBACILLUS ACIDOPHILUS CAPSULE PO SCH (09:48)
[2022-09-07] MEDS: FAMOTIDINE 20 MG TAB PO SCH ×2 (09:48→16:43)
[2022-09-07] MEDS: CARVEDILOL 12.5 MG TAB PO SCH ×2 (09:48→20:55)
[2022-09-07] MEDS: INSULIN LISPRO 100 UNIT/1 ML 3ML VIAL SQ SCH ×4 (09:50→21:01)
[2022-09-07] MEDS ORDERED: SODIUM CHLORIDE 0.9% 250ML 250 ML ONE (10:08)
[2022-09-07] MEDS ORDERED: POTASSIUM CHLORIDE 20 MEQ TAB CR PO STA (14:59)
[2022-09-07] MEDS ORDERED: METOLAZONE 5 MG TAB PO ONE (15:00)
[2022-09-07] MEDS: DOXEPIN HCL 10 MG CAP PO SCH (20:53)
[2022-09-07] MEDS: ATORVASTATIN 20 MG TAB PO SCH (20:55)
[2022-09-08] VITALS (8 sets, daily range): BP systolic 83–114; BP diastolic 53–79
[2022-09-08] MEDS: ALBUTEROL/IPRATROPIUM 3 ML NEB INH SCH ×6 (02:40→23:02)
[2022-09-08] MEDS: FUROSEMIDE INJ 10 MG/ML 2 ML VIAL IV SCH ×2 (05:55→17:40)
[2022-09-08 06:02] LABS: BASOPHILS # (AUTO) 0.1 (0.0-0.1); BASOPHILS % 1.5 % (0.0-1.0); EOSINOPHILS # (AUTO) 0.2 (0.0-0.4); EOSINOPHILS % 2.1 % (0.0-6.0); HEMOGLOBIN 13.2 g/dL (12.0-16.0); LYMPHOCYTES # (AUTO) 2.2 (1.0-3.2); LYMPHOCYTES % 26.3 % (18.0-39.1); MEAN CORPUSCULAR HEMOGLOBIN 28.1 pg (28-32); MEAN CORPUSCULAR HGB CONC 31.4 g/dL (31-35); MEAN CORPUSCULAR VOLUME 89.6 fL (81-99); MONOCYTES # (AUTO) 0.7 (0.2-0.8); MONOCYTES % 8.7 % (4.4-11.3); NEUTROPHILS # (AUTO) 5.2 (2.1-6.9); PLATELET COUNT 179 x10e3/uL (140-360); RED BLOOD COUNT 4.69 x10e6/uL (3.6-5.1); RED CELL DISTRIBUTION WIDTH 14.7 % (11.7-14.4)
[2022-09-08 06:17] LABS: ALBUMIN 2.4 g/dL (3.5-5.0); ALBUMIN/GLOBULIN RATIO 0.6 (0.8-2.0); ANION GAP 17.5 mmol/L (8-16); CALCIUM 9.3 mg/dL (8.4-10.2); CREATININE, SERUM 1.57 mg/dL (0.57-1.11); POTASSIUM 4.5 mmol/L (3.5-5.1)
[2022-09-08] MEDS: FAMOTIDINE 20 MG TAB PO SCH ×2 (08:40→15:56)
[2022-09-08] MEDS: ASPIRIN 81 MG ENTERIC COATED PO SCH (08:40)
[2022-09-08] MEDS: SPIRONOLACTONE 25 MG TAB PO SCH (08:40)
[2022-09-08] MEDS: INSULIN LISPRO 100 UNIT/1 ML 3ML VIAL SQ SCH ×4 (08:40→22:02)
[2022-09-08] MEDS: DOCUSATE SODIUM 100 MG CAP PO SCH ×2 (08:40→15:57)
[2022-09-08] MEDS: LOSARTAN POTASSIUM 25 MG TAB PO SCH (08:41)
[2022-09-08] MEDS: HYDROCHLOROTHIAZIDE 25 MG TAB PO SCH (08:41)
[2022-09-08] MEDS: CARVEDILOL 12.5 MG TAB PO SCH ×2 (08:41→21:00)
[2022-09-08] MEDS: SERTRALINE HCL 50 MG TAB PO SCH (08:42)
[2022-09-08] MEDS: NICOTINE 7 MG PATCH TOP SCH (08:42)
[2022-09-08] MEDS: LACTOBACILLUS ACIDOPHILUS CAPSULE PO SCH (08:42)
[2022-09-08] MEDS: SITAGLIPTIN 100 MG TAB PO SCH (08:42)
[2022-09-08] MEDS ORDERED: MAGNESIUM SULFATE 2GM/50ML 50 ML IV ONE ×2 (08:45→10:30)
[2022-09-08] MEDS ORDERED: ONDANSETRON HCL 4 MG ORAL DISINTEGRATING TAB PO PRN (12:30)
[2022-09-08] MEDS: PIPERACILLIN/TAZOBACTAM 4.5 GM in SODIUM CHLORIDE 0.9% 100 ML IV SCH ×2 (13:28→22:07)
[2022-09-08] MEDS: ATORVASTATIN 20 MG TAB PO SCH (21:54)
[2022-09-08] MEDS: DOXEPIN HCL 10 MG CAP PO SCH (21:55)
[2022-09-09] VITALS (7 sets, daily range): BP systolic 81–114; BP diastolic 52–67
[2022-09-09] MEDS: ALBUTEROL/IPRATROPIUM 3 ML NEB INH SCH ×6 (03:00→23:00)
[2022-09-09] MEDS: FUROSEMIDE INJ 10 MG/ML 2 ML VIAL IV SCH ×2 (05:10→17:21)
[2022-09-09] MEDS: PIPERACILLIN/TAZOBACTAM 4.5 GM in SODIUM CHLORIDE 0.9% 100 ML IV SCH ×3 (05:11→21:55)
[2022-09-09 06:18] LABS: BASOPHILS # (AUTO) 0.1 (0.0-0.1); BASOPHILS % 1.2 % (0.0-1.0); EOSINOPHILS # (AUTO) 0.3 (0.0-0.4); EOSINOPHILS % 2.8 % (0.0-6.0); HEMATOCRIT 43.2 % (34.2-44.1); HEMOGLOBIN 13.7 g/dL (12.0-16.0); LYMPHOCYTES # (AUTO) 1.6 (1.0-3.2); LYMPHOCYTES % 17.4 % (18.0-39.1); MEAN CORPUSCULAR HEMOGLOBIN 27.7 pg (28-32); MEAN CORPUSCULAR HGB CONC 31.7 g/dL (31-35); MEAN CORPUSCULAR VOLUME 87.3 fL (81-99); MONOCYTES # (AUTO) 0.9 (0.2-0.8); MONOCYTES % 9.4 % (4.4-11.3); NEUTROPHILS # (AUTO) 6.4 (2.1-6.9); NEUTROPHILS % 68.9 % (38.7-80.0); PLATELET COUNT 198 x10e3/uL (140-360); RED BLOOD COUNT 4.95 x10e6/uL (3.6-5.1); RED CELL DISTRIBUTION WIDTH 14.6 % (11.7-14.4)
[2022-09-09 06:52] LABS: ALBUMIN 2.4 g/dL (3.5-5.0); ALBUMIN/GLOBULIN RATIO 0.6 (0.8-2.0); ANION GAP 19.5 mmol/L (8-16); CALCIUM 9.2 mg/dL (8.4-10.2); CREATININE, SERUM 1.73 mg/dL (0.57-1.11); POTASSIUM 4.5 mmol/L (3.5-5.1)
[2022-09-09] MEDS: INSULIN LISPRO 100 UNIT/1 ML 3ML VIAL SQ SCH ×4 (07:30→22:00)
[2022-09-09] MEDS: SPIRONOLACTONE 25 MG TAB PO SCH (08:38)
[2022-09-09] MEDS: FAMOTIDINE 20 MG TAB PO SCH ×2 (08:38→16:25)
[2022-09-09] MEDS: CARVEDILOL 12.5 MG TAB PO SCH ×2 (08:39→21:00)
[2022-09-09] MEDS: ASPIRIN 81 MG ENTERIC COATED PO SCH (08:39)
[2022-09-09] MEDS: DOCUSATE SODIUM 100 MG CAP PO SCH ×2 (08:39→16:33)
[2022-09-09] MEDS: HYDROCHLOROTHIAZIDE 25 MG TAB PO SCH (08:40)
[2022-09-09] MEDS: LOSARTAN POTASSIUM 25 MG TAB PO SCH (08:40)
[2022-09-09] MEDS: NICOTINE 7 MG PATCH TOP SCH (08:40)
[2022-09-09] MEDS: LACTOBACILLUS ACIDOPHILUS CAPSULE PO SCH (08:40)
[2022-09-09] MEDS: SERTRALINE HCL 50 MG TAB PO SCH (08:40)
[2022-09-09] MEDS: SITAGLIPTIN 100 MG TAB PO SCH (08:40)
[2022-09-09] MEDS: ENOXAPARIN SOD INJ 40 MG/0.4 ML SYR SC SCH (16:33)
[2022-09-09] MEDS ORDERED: SODIUM CHLORIDE 0.9% 100 ML ONE (21:34)
[2022-09-09] MEDS: DOXEPIN HCL 10 MG CAP PO SCH (21:43)
[2022-09-09] MEDS: ATORVASTATIN 20 MG TAB PO SCH (21:44)
[2022-09-10] VITALS (8 sets, daily range): BP systolic 84–118; BP diastolic 51–71
[2022-09-10] MEDS: ALBUTEROL/IPRATROPIUM 3 ML NEB INH SCH ×6 (03:00→23:00)
[2022-09-10 06:17] LABS: BASOPHILS # (AUTO) 0.1 (0.0-0.1); BASOPHILS % 0.8 % (0.0-1.0); EOSINOPHILS # (AUTO) 0.3 (0.0-0.4); EOSINOPHILS % 3.2 % (0.0-6.0); HEMATOCRIT 45.6 % (34.2-44.1); HEMOGLOBIN 13.8 g/dL (12.0-16.0); LYMPHOCYTES # (AUTO) 1.7 (1.0-3.2); LYMPHOCYTES % 17.1 % (18.0-39.1); MEAN CORPUSCULAR HEMOGLOBIN 27.5 pg (28-32); MEAN CORPUSCULAR HGB CONC 30.3 g/dL (31-35); MEAN CORPUSCULAR VOLUME 90.8 fL (81-99); MONOCYTES # (AUTO) 0.8 (0.2-0.8); MONOCYTES % 8.7 % (4.4-11.3); NEUTROPHILS # (AUTO) 6.7 (2.1-6.9); NEUTROPHILS % 69.9 % (38.7-80.0); PLATELET COUNT 228 x10e3/uL (140-360); RED BLOOD COUNT 5.02 x10e6/uL (3.6-5.1); RED CELL DISTRIBUTION WIDTH 14.4 % (11.7-14.4)
[2022-09-10 06:29] LABS: ANION GAP 16.9 mmol/L (8-16); CALCIUM 9.1 mg/dL (8.4-10.2); CREATININE, SERUM 2.05 mg/dL (0.57-1.11); POTASSIUM 3.9 mmol/L (3.5-5.1)
[2022-09-10 06:44] LABS: ALBUMIN 2.4 g/dL (3.5-5.0); ALBUMIN/GLOBULIN RATIO 0.6 (0.8-2.0)
[2022-09-10] MEDS: FUROSEMIDE INJ 10 MG/ML 2 ML VIAL IV SCH (06:58)
[2022-09-10] MEDS: PIPERACILLIN/TAZOBACTAM 4.5 GM in SODIUM CHLORIDE 0.9% 100 ML IV SCH ×3 (06:59→22:33)
[2022-09-10] MEDS: FAMOTIDINE 20 MG TAB PO SCH ×2 (08:50→16:36)
[2022-09-10] MEDS: ASPIRIN 81 MG ENTERIC COATED PO SCH (08:50)
[2022-09-10] MEDS: DOCUSATE SODIUM 100 MG CAP PO SCH ×2 (08:50→16:35)
[2022-09-10] MEDS: CARVEDILOL 12.5 MG TAB PO SCH ×2 (08:50→22:32)
[2022-09-10] MEDS: SITAGLIPTIN 100 MG TAB PO SCH (08:51)
[2022-09-10] MEDS: SERTRALINE HCL 50 MG TAB PO SCH (08:51)
[2022-09-10] MEDS: LACTOBACILLUS ACIDOPHILUS CAPSULE PO SCH (08:51)
[2022-09-10] MEDS: NICOTINE 7 MG PATCH TOP SCH (08:51)
[2022-09-10] MEDS: INSULIN LISPRO 100 UNIT/1 ML 3ML VIAL SQ SCH ×4 (08:53→22:42)
[2022-09-10] MEDS: LOSARTAN POTASSIUM 25 MG TAB PO SCH (09:00)
[2022-09-10] MEDS: FUROSEMIDE 40 MG TAB PO SCH (16:36)
[2022-09-10] MEDS: ENOXAPARIN SOD INJ 40 MG/0.4 ML SYR SC SCH (18:08)
[2022-09-10] MEDS: DOXEPIN HCL 10 MG CAP PO SCH (22:31)
[2022-09-10] MEDS: ATORVASTATIN 20 MG TAB PO SCH (22:32)
[2022-09-11] VITALS (8 sets, daily range): BP systolic 84–106; BP diastolic 49–74
[2022-09-11] MEDS: ALBUTEROL/IPRATROPIUM 3 ML NEB INH SCH ×6 (02:40→23:00)
[2022-09-11] MEDS ORDERED: FUROSEMIDE INJ 10 MG/ML 4 ML VIAL IV SCH (06:00)
[2022-09-11] MEDS: PIPERACILLIN/TAZOBACTAM 4.5 GM in SODIUM CHLORIDE 0.9% 100 ML IV SCH ×3 (06:05→22:25)
[2022-09-11] MEDS: FUROSEMIDE 40 MG TAB PO SCH (06:05)
[2022-09-11 07:17] LABS: BASOPHILS # (AUTO) 0.1 (0.0-0.1); EOSINOPHILS # (AUTO) 0.3 (0.0-0.4); HEMATOCRIT 46.1 % (34.2-44.1); HEMOGLOBIN 13.7 g/dL (12.0-16.0); LYMPHOCYTES # (AUTO) 1.7 (1.0-3.2); LYMPHOCYTES % 18.9 % (18.0-39.1); MEAN CORPUSCULAR HEMOGLOBIN 27.3 pg (28-32); MEAN CORPUSCULAR HGB CONC 29.7 g/dL (31-35); MEAN CORPUSCULAR VOLUME 91.8 fL (81-99); MONOCYTES # (AUTO) 0.8 (0.2-0.8); MONOCYTES % 9.1 % (4.4-11.3); NEUTROPHILS # (AUTO) 6.1 (2.1-6.9); NEUTROPHILS % 67.8 % (38.7-80.0); PLATELET COUNT 226 x10e3/uL (140-360); RED BLOOD COUNT 5.02 x10e6/uL (3.6-5.1); RED CELL DISTRIBUTION WIDTH 14.5 % (11.7-14.4)
[2022-09-11 07:36] LABS: ALBUMIN 2.5 g/dL (3.5-5.0); ALBUMIN/GLOBULIN RATIO 0.6 (0.8-2.0); ANION GAP 18.6 mmol/L (8-16); CALCIUM 9.1 mg/dL (8.4-10.2); CREATININE, SERUM 2.28 mg/dL (0.57-1.11); POTASSIUM 3.6 mmol/L (3.5-5.1)
[2022-09-11] MEDS: LOSARTAN POTASSIUM 25 MG TAB PO SCH (09:00)
[2022-09-11] MEDS: NICOTINE 7 MG PATCH TOP SCH (09:00)
[2022-09-11] MEDS: FAMOTIDINE 20 MG TAB PO SCH ×2 (09:47→16:45)
[2022-09-11] MEDS: DOCUSATE SODIUM 100 MG CAP PO SCH ×2 (09:47→16:45)
[2022-09-11] MEDS: ASPIRIN 81 MG ENTERIC COATED PO SCH (09:47)
[2022-09-11] MEDS: CARVEDILOL 12.5 MG TAB PO SCH ×2 (09:48→21:00)
[2022-09-11] MEDS: SERTRALINE HCL 50 MG TAB PO SCH (09:48)
[2022-09-11] MEDS: LACTOBACILLUS ACIDOPHILUS CAPSULE PO SCH (09:48)
[2022-09-11] MEDS: SITAGLIPTIN 100 MG TAB PO SCH (09:48)
[2022-09-11] MEDS: INSULIN LISPRO 100 UNIT/1 ML 3ML VIAL SQ SCH ×4 (09:51→21:20)
[2022-09-11] MEDS: ENOXAPARIN SOD INJ 40 MG/0.4 ML SYR SC SCH (16:45)
[2022-09-11] MEDS: ATORVASTATIN 20 MG TAB PO SCH (21:08)
[2022-09-11] MEDS: DOXEPIN HCL 10 MG CAP PO SCH (21:08)
[2022-09-12] VITALS (8 sets, daily range): BP systolic 88–109; BP diastolic 53–69
[2022-09-12] MEDS: ALBUTEROL/IPRATROPIUM 3 ML NEB INH SCH ×6 (03:40→23:00)
[2022-09-12] MEDS: PIPERACILLIN/TAZOBACTAM 4.5 GM in SODIUM CHLORIDE 0.9% 100 ML IV SCH ×3 (05:35→21:19)
[2022-09-12 06:38] LABS: BASOPHILS # (AUTO) 0.1 (0.0-0.1); BASOPHILS % 0.9 % (0.0-1.0); EOSINOPHILS # (AUTO) 0.3 (0.0-0.4); EOSINOPHILS % 3.2 % (0.0-6.0); HEMATOCRIT 46.1 % (34.2-44.1); HEMOGLOBIN 13.7 g/dL (12.0-16.0); LYMPHOCYTES # (AUTO) 1.5 (1.0-3.2); LYMPHOCYTES % 13.8 % (18.0-39.1); MEAN CORPUSCULAR HEMOGLOBIN 27.5 pg (28-32); MEAN CORPUSCULAR HGB CONC 29.7 g/dL (31-35); MEAN CORPUSCULAR VOLUME 92.4 fL (81-99); MONOCYTES # (AUTO) 0.7 (0.2-0.8); MONOCYTES % 6.6 % (4.4-11.3); NEUTROPHILS # (AUTO) 7.9 (2.1-6.9); NEUTROPHILS % 75.1 % (38.7-80.0); PLATELET COUNT 232 x10e3/uL (140-360); RED BLOOD COUNT 4.99 x10e6/uL (3.6-5.1); RED CELL DISTRIBUTION WIDTH 14.5 % (11.7-14.4)
[2022-09-12 07:03] LABS: ALBUMIN 2.4 g/dL (3.5-5.0); ALBUMIN/GLOBULIN RATIO 0.6 (0.8-2.0); ANION GAP 17.4 mmol/L (8-16); CALCIUM 8.9 mg/dL (8.4-10.2); CREATININE, SERUM 2.08 mg/dL (0.57-1.11); POTASSIUM 3.4 mmol/L (3.5-5.1)
[2022-09-12] MEDS: LACTOBACILLUS ACIDOPHILUS CAPSULE PO SCH (10:07)
[2022-09-12] MEDS: SERTRALINE HCL 50 MG TAB PO SCH (10:08)
[2022-09-12] MEDS: FAMOTIDINE 20 MG TAB PO SCH ×2 (10:08→16:44)
[2022-09-12] MEDS: SITAGLIPTIN 100 MG TAB PO SCH (10:08)
[2022-09-12] MEDS: NICOTINE 7 MG PATCH TOP SCH (10:08)
[2022-09-12] MEDS: DOCUSATE SODIUM 100 MG CAP PO SCH ×2 (10:08→16:43)
[2022-09-12] MEDS: ASPIRIN 81 MG ENTERIC COATED PO SCH (10:08)
[2022-09-12] MEDS: CARVEDILOL 12.5 MG TAB PO SCH (10:09)
[2022-09-12] MEDS: LOSARTAN POTASSIUM 25 MG TAB PO SCH (10:09)
[2022-09-12] MEDS: INSULIN LISPRO 100 UNIT/1 ML 3ML VIAL SQ SCH ×4 (10:12→21:39)
[2022-09-12] MEDS ORDERED: POTASSIUM CHLORIDE 20 MEQ TAB CR PO ONE ×2 (10:30→17:29)
[2022-09-12] MEDS ORDERED: SODIUM CHLORIDE 0.9% 250ML 250 ML ONE (14:59)
[2022-09-12] MEDS: ENOXAPARIN SOD INJ 40 MG/0.4 ML SYR SC SCH (16:43)
[2022-09-12] MEDS ORDERED: DEXTROSE 50% SYRINGE 50 ML IV PRN (19:30)
[2022-09-12] MEDS ORDERED: INSULIN LISPRO 100 UNIT/1 ML 3ML VIAL SQ SCH (21:00)
[2022-09-12] MEDS: ATORVASTATIN 20 MG TAB PO SCH (21:19)
[2022-09-12] MEDS: DOXEPIN HCL 10 MG CAP PO SCH (21:19)
[2022-09-13] VITALS (7 sets, daily range): BP systolic 90–133; BP diastolic 40–86
[2022-09-13] MEDS: ALBUTEROL/IPRATROPIUM 3 ML NEB INH SCH ×5 (03:00→19:00)
[2022-09-13] MEDS: PIPERACILLIN/TAZOBACTAM 4.5 GM in SODIUM CHLORIDE 0.9% 100 ML IV SCH ×3 (05:24→21:54)
[2022-09-13 06:46] LABS: BASOPHILS # (AUTO) 0.1 (0.0-0.1); BASOPHILS % 0.8 % (0.0-1.0); EOSINOPHILS # (AUTO) 0.3 (0.0-0.4); EOSINOPHILS % 2.6 % (0.0-6.0); HEMATOCRIT 44.9 % (34.2-44.1); HEMOGLOBIN 13.2 g/dL (12.0-16.0); LYMPHOCYTES # (AUTO) 1.3 (1.0-3.2); LYMPHOCYTES % 11.7 % (18.0-39.1); MEAN CORPUSCULAR HEMOGLOBIN 27.6 pg (28-32); MEAN CORPUSCULAR HGB CONC 29.4 g/dL (31-35); MEAN CORPUSCULAR VOLUME 93.7 fL (81-99); MONOCYTES # (AUTO) 0.8 (0.2-0.8); MONOCYTES % 7.1 % (4.4-11.3); NEUTROPHILS # (AUTO) 8.4 (2.1-6.9); NEUTROPHILS % 77.4 % (38.7-80.0); PLATELET COUNT 230 x10e3/uL (140-360); RED BLOOD COUNT 4.79 x10e6/uL (3.6-5.1); RED CELL DISTRIBUTION WIDTH 14.4 % (11.7-14.4)
[2022-09-13 07:15] LABS: ANION GAP 17.1 mmol/L (8-16); CALCIUM 8.9 mg/dL (8.4-10.2); CREATININE, SERUM 1.67 mg/dL (0.57-1.11); POTASSIUM 4.1 mmol/L (3.5-5.1)
[2022-09-13 07:57] LABS: ALBUMIN 2.4 g/dL (3.5-5.0); ALBUMIN/GLOBULIN RATIO 0.6 (0.8-2.0); CALCIUM 9.1 mg/dL (8.4-10.2); CREATININE, SERUM 1.71 mg/dL (0.57-1.11)
[2022-09-13] MEDS ORDERED: FUROSEMIDE 40 MG TAB PO SCH (09:00)
[2022-09-13] MEDS: SITAGLIPTIN 100 MG TAB PO SCH (09:15)
[2022-09-13] MEDS: LACTOBACILLUS ACIDOPHILUS CAPSULE PO SCH (09:15)
[2022-09-13] MEDS: DOCUSATE SODIUM 100 MG CAP PO SCH ×2 (09:15→16:58)
[2022-09-13] MEDS: SERTRALINE HCL 50 MG TAB PO SCH (09:15)
[2022-09-13] MEDS: ASPIRIN 81 MG ENTERIC COATED PO SCH (09:15)
[2022-09-13] MEDS: NICOTINE 7 MG PATCH TOP SCH (09:15)
[2022-09-13] MEDS: FAMOTIDINE 20 MG TAB PO SCH ×2 (09:16→16:59)
[2022-09-13] MEDS: FUROSEMIDE 40 MG TAB PO SCH ×2 (10:00→16:58)
[2022-09-13] MEDS: INSULIN LISPRO 100 UNIT/1 ML 3ML VIAL SQ SCH ×4 (10:06→21:53)
[2022-09-13] MEDS: LOSARTAN POTASSIUM 100 MG TAB PO SCH (10:18)
[2022-09-13] MEDS: CARVEDILOL 12.5 MG TAB PO SCH (16:58)
[2022-09-13] MEDS: ENOXAPARIN SOD INJ 40 MG/0.4 ML SYR SC SCH (16:59)
[2022-09-13] MEDS: DOXEPIN HCL 10 MG CAP PO SCH (21:53)
[2022-09-13] MEDS: ATORVASTATIN 20 MG TAB PO SCH (21:54)
[2022-09-14] VITALS (9 sets, daily range): BP systolic 82–113; BP diastolic 50–83
[2022-09-14] MEDS: ALBUTEROL/IPRATROPIUM 3 ML NEB INH SCH ×4 (01:00→19:00)
[2022-09-14] MEDS: FAMOTIDINE 20 MG TAB PO SCH ×2 (06:25→09:19)
[2022-09-14] MEDS: PIPERACILLIN/TAZOBACTAM 4.5 GM in SODIUM CHLORIDE 0.9% 100 ML IV SCH ×3 (06:26→21:01)
[2022-09-14 06:59] LABS: BASOPHILS # (AUTO) 0.1 (0.0-0.1); BASOPHILS % 0.6 % (0.0-1.0); EOSINOPHILS # (AUTO) 0.4 (0.0-0.4); HEMATOCRIT 43.7 % (34.2-44.1); HEMOGLOBIN 12.7 g/dL (12.0-16.0); LYMPHOCYTES # (AUTO) 1.6 (1.0-3.2); LYMPHOCYTES % 12.8 % (18.0-39.1); MEAN CORPUSCULAR HEMOGLOBIN 27.3 pg (28-32); MEAN CORPUSCULAR HGB CONC 29.1 g/dL (31-35); MONOCYTES % 8.1 % (4.4-11.3); NEUTROPHILS # (AUTO) 9.4 (2.1-6.9); NEUTROPHILS % 75.2 % (38.7-80.0); PLATELET COUNT 245 x10e3/uL (140-360); RED BLOOD COUNT 4.65 x10e6/uL (3.6-5.1); RED CELL DISTRIBUTION WIDTH 14.6 % (11.7-14.4)
[2022-09-14 07:21] LABS: ALBUMIN 2.3 g/dL (3.5-5.0); ALBUMIN/GLOBULIN RATIO 0.6 (0.8-2.0); ANION GAP 15.6 mmol/L (8-16); CALCIUM 8.9 mg/dL (8.4-10.2); CREATININE, SERUM 1.8 mg/dL (0.57-1.11); POTASSIUM 3.6 mmol/L (3.5-5.1)
[2022-09-14] MEDS: CARVEDILOL 12.5 MG TAB PO SCH ×2 (09:00→17:00)
[2022-09-14] MEDS: LOSARTAN POTASSIUM 100 MG TAB PO SCH (09:00)
[2022-09-14] MEDS: LACTOBACILLUS ACIDOPHILUS CAPSULE PO SCH (09:18)
[2022-09-14] MEDS: DOCUSATE SODIUM 100 MG CAP PO SCH (09:19)
[2022-09-14] MEDS: ASPIRIN 81 MG ENTERIC COATED PO SCH (09:19)
[2022-09-14] MEDS: SERTRALINE HCL 50 MG TAB PO SCH (09:20)
[2022-09-14] MEDS: NICOTINE 7 MG PATCH TOP SCH (09:20)
[2022-09-14] MEDS: SITAGLIPTIN 100 MG TAB PO SCH (09:20)
[2022-09-14] MEDS: FUROSEMIDE 40 MG TAB PO SCH ×2 (09:32→17:07)
[2022-09-14] MEDS: INSULIN LISPRO 100 UNIT/1 ML 3ML VIAL SQ SCH ×4 (09:46→20:56)
[2022-09-14] MEDS ORDERED: DOCUSATE SODIUM 100 MG CAP PO PRN (13:15)
[2022-09-14] MEDS: ENOXAPARIN SOD INJ 40 MG/0.4 ML SYR SC SCH (17:07)
[2022-09-14] MEDS ORDERED: SODIUM CHLORIDE 0.9% 100 ML ONE (20:36)
[2022-09-14] MEDS: DOXEPIN HCL 10 MG CAP PO SCH (20:50)
[2022-09-14] MEDS: ATORVASTATIN 20 MG TAB PO SCH (20:50)
[2022-09-15] VITALS: BP 99/70
[2022-09-15] MEDS: ALBUTEROL/IPRATROPIUM 3 ML NEB INH SCH ×3 (01:00→13:30)
[2022-09-15 04:00] VITALS: BP 115/75
[2022-09-15] MEDS: PIPERACILLIN/TAZOBACTAM 4.5 GM in SODIUM CHLORIDE 0.9% 100 ML IV SCH (05:19)
[2022-09-15 06:12] LABS: ANION GAP 16.7 mmol/L (8-16); CALCIUM 9.5 mg/dL (8.4-10.2); CREATININE, SERUM 1.64 mg/dL (0.57-1.11); POTASSIUM 3.7 mmol/L (3.5-5.1)
[2022-09-15] MEDS: INSULIN LISPRO 100 UNIT/1 ML 3ML VIAL SQ SCH ×3 (08:00→16:43)
[2022-09-15 08:20] VITALS: BP 139/72
[2022-09-15 08:36] VITALS: BP 139/72
[2022-09-15] MEDS: FAMOTIDINE 20 MG TAB PO SCH ×2 (09:05→16:40)
[2022-09-15] MEDS: ASPIRIN 81 MG ENTERIC COATED PO SCH (09:05)
[2022-09-15] MEDS: SITAGLIPTIN 100 MG TAB PO SCH (09:06)
[2022-09-15] MEDS: CARVEDILOL 12.5 MG TAB PO SCH ×2 (09:06→16:41)
[2022-09-15] MEDS: LOSARTAN POTASSIUM 100 MG TAB PO SCH (09:06)
[2022-09-15] MEDS: SERTRALINE HCL 50 MG TAB PO SCH (09:07)
[2022-09-15] MEDS: LACTOBACILLUS ACIDOPHILUS CAPSULE PO SCH (09:07)
[2022-09-15] MEDS: FUROSEMIDE 40 MG TAB PO SCH (09:07)
[2022-09-15] MEDS: NICOTINE 7 MG PATCH TOP SCH (09:07)
[2022-09-15] MEDS ORDERED: JANUVIA100 MG PO (10:57)
[2022-09-15] MEDS ORDERED: Docusate Sodium PO (10:57)
[2022-09-15] MEDS ORDERED: COREG12.5 MG PO (10:57)
[2022-09-15] MEDS ORDERED: Albuterol/Ipratropium Nebulize INH (10:57)
[2022-09-15 11:45] VITALS: BP 99/68
== END 2022-09-15 17:43 | DRG 291 ==
LOC: ER 02:26 → ERHOLD 03:43 → ICU 05:20 → MED/SURG3 18:34
PROVIDERS: ADMIT Internal Medicine; ATTEND Internal Medicine
DX: I13.0 Hypertensive heart and chronic kidney disease with heart failure and stage 1 through stage 4 chronic kidney disease, or unspecified chronic kidney disease (principal); I50.43 Acute on chronic combined systolic (congestive) and diastolic (congestive) heart failure; J96.20 Acute and chronic respiratory failure, unspecified whether with hypoxia or hypercapnia; N39.0 Urinary tract infection, site not specified; J90 Pleural effusion, not elsewhere classified; J44.1 Chronic obstructive pulmonary disease with (acute) exacerbation; E87.3 Alkalosis; N17.9 Acute kidney failure, unspecified; E11.649 Type 2 diabetes mellitus with hypoglycemia without coma; B96.20 Unspecified Escherichia coli [E. coli] as the cause of diseases classified elsewhere; E11.22 Type 2 diabetes mellitus with diabetic chronic kidney disease; E11.65 Type 2 diabetes mellitus with hyperglycemia; N18.9 Chronic kidney disease, unspecified; R13.12 Dysphagia, oropharyngeal phase; R62.7 Adult failure to thrive; R53.81 Other malaise; F41.9 Anxiety disorder, unspecified; F32.A Depression, unspecified; I27.21 Secondary pulmonary arterial hypertension; H91.90 Unspecified hearing loss, unspecified ear; E78.5 Hyperlipidemia, unspecified; R91.1 Solitary pulmonary nodule; E78.00 Pure hypercholesterolemia, unspecified; I08.1 Rheumatic disorders of both mitral and tricuspid valves; Z99.81 Dependence on supplemental oxygen; Z68.35 Body mass index [BMI] 35.0-35.9, adult; Z66 Do not resuscitate; Z79.4 Long term (current) use of insulin; Z90.49 Acquired absence of other specified parts of digestive tract; Z98.51 Tubal ligation status; Z98.49 Cataract extraction status, unspecified eye; Z98.890 Other specified postprocedural states; Z82.49 Family history of ischemic heart disease and other diseases of the circulatory system; Z79.82 Long term (current) use of aspirin; Z79.899 Other long term (current) drug therapy; Z87.891 Personal history of nicotine dependence
CPT/HCPCS: 36415; 71045; 71046; 80048; 80053; 81001; 82550; 82553; 82948; 83735; 83880; 84100; 84484; 85025; 87040; 87086; 87186; 93041; 94640; 94799; 96360; 99252; 99284; 99285; J0696; J1650; J1940; J2543; J3475; J7050; J7799